=== PATIENT | male | born 1940 | race Caucasian/White ===

== ENCOUNTER 2017-05-08 09:51 | Day surgery (SDC) | payer MEDICARE, OTHER ==
[~2017-05-08] VITALS: Ht 193 cm; Wt 100.6 kg
[~2017-05-08 09:51] MED LIST: AFRIN NASAL SPR15 M1 NAS; AGGRENOX CAPSUL1 CAP PO; ALLOPURINOL300 MG PO; ATENOLOL50 MG PO; ATIVAN 0.50.5 MG/TAB PO; BENADRYL; BYSTOLIC PO; BYSTOLIC20 MG PO; COZAAR100 MG PO; DIOVAN/HCT 12.51 TA1 PO; DOXYCYCLINE 10100 MG PO; FISH OIL CONC1000 MG PO; GLUCOTROL XL10 MG PO; HCTZ12.5TAB PO; LEVAQUIN 5500 MG/TA1 PO; LIPITOR 10MG10 MG PO; LIPITOR20 MG PO; LISINOPRIL PO; LISINOPRIL10 MG PO; LISINOPRIL20 MG PO; NIASPAN 500MG500 MG PO; NORVASC 5MG5 MG/TAB PO; OCEAN NASAL SPR45 ML NS; PRAVACHOL10 MG PO; PRILOSEC 20MG20 MG PO; SLEEP AID OTC; STERILE WATER NAS; TYLENOL 325MG325 MG PO; VITAMIN B121000 MC2 SL; ZANTAC 150150 MG PO
[2017-05-08 10:23] VITALS: BP 138/73; PULSE 62; TEMP 98.3
[2017-05-08] MEDS ORDERED: AGGRENOX ER 251 CER PO (11:09)
[2017-05-08] MEDS ORDERED: NORVASC 5MG5 MG/TAB PO (11:09)
[2017-05-08] MEDS ORDERED: LIPITOR20 MG PO (11:10)
[2017-05-08] MEDS ORDERED: NITROSTAT0.4 MG/TAB SL (11:10)
[2017-05-08] MEDS ORDERED: DIOVAN320 MG PO (11:11)
[2017-05-08] MEDS ORDERED: BYSTOLIC10 MG PO (11:11)
[2017-05-08] MEDS ORDERED: GLUCOTROL XL2.5 MG PO (11:12)
[2017-05-08] MEDS ORDERED: B-121000 MCG PO (11:13)
[2017-05-08] MEDS ORDERED: CIALIS2.5 MG PO (11:14)
[2017-05-08] MEDS ORDERED: PRILOSEC 20MG20 MG PO (11:15)
[2017-05-08] MEDS ORDERED: ROZEREM 8MG TABL8 MG PO (11:15)
[2017-05-08] MEDS ORDERED: ZYLOPRIM 300MG300 MG PO (11:16)
[2017-05-08] MEDS ORDERED: TYLENOL 500MG500 MG PO (11:16)
[2017-05-08 11:45] VITALS: BP 136/78; PULSE 61; TEMP 97.6
[2017-05-08 12:00] VITALS: BP 123/94; PULSE 70
[2017-05-08 12:15] VITALS: BP 114/74; PULSE 55
== END 2017-05-08 12:46 | disposition home or self-care (01) ==
LOC: SDCO 09:51
DX: Z12.11 Encounter for screening for malignant neoplasm of colon (principal); K57.30 Diverticulosis of large intestine without perforation or abscess without bleeding; K21.9 Gastro-esophageal reflux disease without esophagitis; E11.9 Type 2 diabetes mellitus without complications; I10 Essential (primary) hypertension
CPT/HCPCS: J2250; J2405; J3010; J7030

== ENCOUNTER 2018-02-23 19:42 | Emergency (ER) | payer MEDICARE, OTHER ==
[~2018-02-23] VITALS: Ht 193 cm; Wt 81.8 kg
[~2018-02-23 19:42] MED LIST changes: +AGGRENOX ER 251 CER PO; +B-121000 MCG PO; +BYSTOLIC10 MG PO; +CIALIS2.5 MG PO; +DIOVAN320 MG PO; +GLUCOTROL XL2.5 MG PO; +NITROSTAT0.4 MG/TAB SL; +ROZEREM 8MG TABL8 MG PO; +TYLENOL 500MG500 MG PO; +ZYLOPRIM 300MG300 MG PO
[2018-02-23 19:48] VITALS: TEMP 98
[2018-02-23] MEDS ORDERED: NORCO 325 MG-51 TAB PO (21:40)
[2018-02-23] MEDS ORDERED: CRUTCHES MC (22:14)
[2018-02-23 22:27] VITALS: BP 136/81; PULSE 61
== END 2018-02-23 22:31 | disposition home or self-care (01) ==
LOC: COL.ER 19:42
DX: S82.851A Displaced trimalleolar fracture of right lower leg, initial encounter for closed fracture (principal); I10 Essential (primary) hypertension; E11.9 Type 2 diabetes mellitus without complications; E78.5 Hyperlipidemia, unspecified; Z79.82 Long term (current) use of aspirin; Z79.84 Long term (current) use of oral hypoglycemic drugs; W10.9XXA Fall (on) (from) unspecified stairs and steps, initial encounter
CPT/HCPCS: J2270; J2704; J7030; Q4045

== ENCOUNTER 2018-02-25 11:08 | Emergency (ER) | payer MEDICARE, OTHER ==
[~2018-02-25] VITALS: Ht 193 cm; Wt 81.8 kg
[~2018-02-25 11:08] MED LIST changes: +CRUTCHES MC; +NORCO 325 MG-51 TAB PO
[2018-02-25 11:09] VITALS: TEMP 97.9
[2018-02-25 11:53] LABS: BASO % 0.3 % (0.0-2.0); EOS # 0.1 (0.0-0.7); EOS % 0.6 % (0-4.0); GRAN # 10.3 (1.4-6.5); GRAN % 84.4 % (42.2-75.2); HEMOGLOBIN 12.7 g/dl (13.5-18.0); LYMPH # 0.8 (1.2-3.4); LYMPH % 6.8 % (20.0-51.0); MEAN CELL VOLUME 98 fl (80.0-100.0); MEAN CORPUSCULAR HEMOGLOBIN 34 pg (27.0-31.0); MEAN CORPUSCULAR HGB CONC 35 g/dl (33.0-37.0); MEAN PLATELET VOLUME 10.3 fl (7.4-10.4); MONO # 0.9 (0.1-0.6); MONO % 7.6 % (1.7-9.3); PLATELET COUNT 184 K/mm3 (130-400); RED BLOOD COUNT 3.71 M/mm3 (4.20-5.60); REDCELL DISTRIBUTION WIDTH-CV 13.6 % (11.5-14.5)
[2018-02-25 11:55] LABS: HEMATOCRIT 36.3 % (42.0-52.0)
[2018-02-25 12:34] LABS: ALBUMIN 3.8 gm/dL (3.5-5.0); BILIRUBIN,TOTAL 1.2 mg/dL (0.0-1.0); C-REACTIVE PROTEIN 3.8 mg/dL (0.0-0.9); CALCIUM 8.8 mg/dL (8.4-10.2); CREATININE, serum 1.23 mg/dL (0.66-1.25); TOTAL PROTEIN 7.5 gm/dL (6.4-8.2)
[2018-02-25 12:41] LABS: POTASSIUM 4.5 mmol/L (3.4-5.0)
[2018-02-25 18:55] VITALS: BP 144/83; PULSE 82
[2018-02-26] MEDS ORDERED: MELATONIN5 M1 SL (14:00)
== END 2018-02-25 18:57 | disposition home or self-care (01) ==
LOC: COL.ER 11:08
PROVIDERS: Family Medicine
DX: S82.851A Displaced trimalleolar fracture of right lower leg, initial encounter for closed fracture (principal); I10 Essential (primary) hypertension; E11.9 Type 2 diabetes mellitus without complications; E78.5 Hyperlipidemia, unspecified; Z79.82 Long term (current) use of aspirin; Z79.84 Long term (current) use of oral hypoglycemic drugs; W10.9XXA Fall (on) (from) unspecified stairs and steps, initial encounter
CPT/HCPCS: J1170; J2060; J2405; J2704; J7030

== ENCOUNTER 2018-02-26 11:05 | Observation (INO) | payer MEDICARE, OTHER ==
[~2018-02-26] VITALS: Ht 193 cm; Wt 93.9 kg
[2018-02-26] VITALS (8 sets, daily range): BP systolic 141–165; BP diastolic 67–101; PULSE 63–77; TEMP 98.5–98.8
[2018-02-26 12:10] LABS: BASO % 0.4 % (0.0-2.0); EOS % 0.4 % (0-4.0); GRAN % 83.1 % (42.2-75.2); HEMOGLOBIN 11.9 g/dl (13.5-18.0); LYMPH # 0.7 (1.2-3.4); LYMPH % 6.8 % (20.0-51.0); MEAN CELL VOLUME 98 fl (80.0-100.0); MEAN CORPUSCULAR HEMOGLOBIN 34 pg (27.0-31.0); MEAN CORPUSCULAR HGB CONC 35 g/dl (33.0-37.0); MEAN PLATELET VOLUME 9.7 fl (7.4-10.4); MONO % 8.8 % (1.7-9.3); PLATELET COUNT 146 K/mm3 (130-400); RED BLOOD COUNT 3.46 M/mm3 (4.20-5.60); REDCELL DISTRIBUTION WIDTH-CV 13.7 % (11.5-14.5)
[2018-02-26 12:19] LABS: ALBUMIN 3.8 gm/dL (3.5-5.0); BILIRUBIN,TOTAL 1.2 mg/dL (0.0-1.0); CALCIUM 9.1 mg/dL (8.4-10.2); CREATININE, serum 1.36 mg/dL (0.66-1.25); POTASSIUM 4.2 mmol/L (3.4-5.0); TOTAL PROTEIN 7.3 gm/dL (6.4-8.2)
[2018-02-26] MEDS ORDERED: MELATONIN5 M1 SL (14:00)
[2018-02-27] VITALS (8 sets, daily range): BP systolic 133–183; BP diastolic 63–86; PULSE 55–91; TEMP 97–99.2
[2018-02-27 06:14] LABS: BASO % 0.4 % (0.0-2.0); EOS # 0.3 (0.0-0.7); EOS % 2.5 % (0-4.0); GRAN # 7.6 (1.4-6.5); GRAN % 76.9 % (42.2-75.2); HEMOGLOBIN 12.3 g/dl (13.5-18.0); LYMPH # 1.1 (1.2-3.4); MEAN CELL VOLUME 97 fl (80.0-100.0); MEAN CORPUSCULAR HEMOGLOBIN 34 pg (27.0-31.0); MEAN CORPUSCULAR HGB CONC 35 g/dl (33.0-37.0); MEAN PLATELET VOLUME 9.8 fl (7.4-10.4); MONO # 0.9 (0.1-0.6); MONO % 8.8 % (1.7-9.3); PLATELET COUNT 171 K/mm3 (130-400); RED BLOOD COUNT 3.58 M/mm3 (4.20-5.60); REDCELL DISTRIBUTION WIDTH-CV 13.3 % (11.5-14.5)
[2018-02-27 06:23] LABS: HEMATOCRIT 34.8 % (42.0-52.0)
[2018-02-27 10:39] LABS: CREATININE, serum 1.21 mg/dL (0.66-1.25); POTASSIUM 3.6 mmol/L (3.4-5.0)
[2018-02-27 14:25] LABS: COLLECTION METHOD CLEAN CATCH
[2018-02-27 14:39] LABS: MUCOUS Present /lpf; PH 6 (5-8); SQUAMOUS EPITHELIAL None Seen /hpf; URINE APPEARANCE Clear; URINE BACTERIA Rare /hpf; URINE BILIRUBIN Negative (NEGATIVE); URINE BLOOD Negative (NEGATIVE); URINE COLOR Yellow; URINE GLUCOSE Negative (NEGATIVE); URINE KETONE Negative (NEGATIVE); URINE LEUKOCYTE ESTERASE Negative (NEGATIVE); URINE NITRATE Negative (NEGATIVE); URINE PROTEIN(semi-quant) Negative (NEGATIVE); URINE RBC 0-2 /hpf; URINE UROBILINOGEN Negative (NEGATIVE)
[2018-02-28 03:53] VITALS: BP 148/73; PULSE 56; TEMP 98.1
[2018-02-28 07:29] LABS: CALCIUM 8.6 mg/dL (8.4-10.2); CREATININE, serum 1.37 mg/dL (0.66-1.25); POTASSIUM 3.9 mmol/L (3.4-5.0)
[2018-02-28 08:22] VITALS: BP 138/67; PULSE 61; TEMP 98
[2018-02-28] MEDS ORDERED: ASPI325T6 PO (08:51)
[2018-02-28] MEDS ORDERED: NORCO 325 MG-51 TAB PO (09:40)
[2018-02-28] MEDS ORDERED: ULTRAM 50MG TAB50 MG PO (09:51)
[2018-02-28 11:48] VITALS: BP 138/67; PULSE 61; TEMP 98
[2018-02-28 12:13] VITALS: BP 148/81; PULSE 52; TEMP 97.7
== END 2018-02-28 13:41 ==
LOC: COL.ER 11:05 → MEDICAL 12:34 → SURG 16:00
PROVIDERS: Family Medicine
DX: S82.851A Displaced trimalleolar fracture of right lower leg, initial encounter for closed fracture (principal); I25.10 Atherosclerotic heart disease of native coronary artery without angina pectoris; I12.9 Hypertensive chronic kidney disease with stage 1 through stage 4 chronic kidney disease, or unspecified chronic kidney disease; E11.22 Type 2 diabetes mellitus with diabetic chronic kidney disease; N18.3 Chronic kidney disease, stage 3 (moderate); E78.5 Hyperlipidemia, unspecified; K21.9 Gastro-esophageal reflux disease without esophagitis; W10.9XXA Fall (on) (from) unspecified stairs and steps, initial encounter; M10.9 Gout, unspecified; D64.9 Anemia, unspecified; Z95.5 Presence of coronary angioplasty implant and graft; Z79.84 Long term (current) use of oral hypoglycemic drugs; Z79.82 Long term (current) use of aspirin; Z86.73 Personal history of transient ischemic attack (TIA), and cerebral infarction without residual deficits; Z88.8 Allergy status to other drugs, medicaments and biological substances; Z82.61 Family history of arthritis; Z83.3 Family history of diabetes mellitus
CPT/HCPCS: G8978-GP; G8979-GP; G8987-GO; G8988-GO; J1170; J2405; J2550; J2704; J7120

== ENCOUNTER → 2018-03-03 | Outpatient (CLI) | payer MEDICARE, OTHER ==
[~2018-03-03] MED LIST changes: +ASPI325T6 PO; +MELATONIN5 M1 SL; +ULTRAM 50MG TAB50 MG PO
[2018-03-03 16:41] LABS: COLLECTION METHOD CLEAN CATCH
[2018-03-03 16:47] LABS: MUCOUS Present /lpf; PH 5 (5-8); SQUAMOUS EPITHELIAL None Seen /hpf; URINE APPEARANCE Clear; URINE BACTERIA None Seen /hpf; URINE BILIRUBIN Negative (NEGATIVE); URINE BLOOD Negative (NEGATIVE); URINE COLOR Yellow; URINE GLUCOSE Negative (NEGATIVE); URINE KETONE Negative (NEGATIVE); URINE LEUKOCYTE ESTERASE Negative (NEGATIVE); URINE NITRATE Negative (NEGATIVE); URINE PROTEIN(semi-quant) Negative (NEGATIVE); URINE RBC None Seen /hpf; URINE WBC 0-2 /hpf
== END ==
LOC: ZLAB.STJ 16:40
PROVIDERS: Internal Medicine
DX: R82.90 Unspecified abnormal findings in urine (principal)

== ENCOUNTER 2018-03-05 14:39 | Inpatient (IN) | payer MEDICARE, OTHER ==
[~2018-03-05] VITALS: Ht 193 cm; Wt 89.9 kg
[~2018-03-05 14:39] MED LIST changes: -NORCO 325 MG-7.1 TAB PO; -ROXICODONE 55 MG/TAB PO
[2018-03-05 17:47] VITALS: BP 111/66; PULSE 86; TEMP 98
[2018-03-05] MEDS ORDERED: AGGRENOX ER 251 CER PO (18:09)
[2018-03-05] MEDS ORDERED: ROXICODONE 55 MG/TAB PO (19:22)
[2018-03-05 19:33] LABS: HEMOGLOBIN 11.2 g/dl (13.5-18.0); MEAN CELL VOLUME 98 fl (80.0-100.0); MEAN CORPUSCULAR HEMOGLOBIN 34 pg (27.0-31.0); MEAN CORPUSCULAR HGB CONC 35 g/dl (33.0-37.0); MEAN PLATELET VOLUME 9.3 fl (7.4-10.4); PLATELET COUNT 234 K/mm3 (130-400); RED BLOOD COUNT 3.29 M/mm3 (4.20-5.60); REDCELL DISTRIBUTION WIDTH-CV 13.3 % (11.5-14.5)
[2018-03-05 19:37] LABS: ALANINE AMINOTRANSFERASE 37 U/L (21-72); ALBUMIN 3.6 gm/dL (3.5-5.0); ALKALINE PHOSPHATASE 46 U/L (50-136); ANION GAP 10 mmol/L (7-16); AST,SGOT 36 U/L (15-37); BLOOD UREA NITROGEN 21 mg/dL (9-20); CALCIUM 8.7 mg/dL (8.4-10.2); CARBON DIOXIDE 25 mmol/L (22-30); CHLORIDE 98 mmol/L (98-107); CREATININE, serum 1.48 mg/dL (0.66-1.25); GLUCOSE 123 mg/dL (74-106); MAGNESIUM 2.2 mg/dL (1.6-2.3); SODIUM 133 mmol/L (137-145)
[2018-03-05 19:38] LABS: HEMATOCRIT 32.3 % (42.0-52.0)
[2018-03-05 19:48] LABS: AMMONIA < 9 umol/L (11-35)
[2018-03-05 19:52] LABS: BAND 1 % (0-10); LYMPHOCYTE 9 % (20.0-51.0); MICROCYTOSIS 1+; NEUTROPHILS 89 % (42.0-75.2)
[2018-03-05 19:53] LABS: ANISOCYTOSIS 2+; PLATELET ESTIMATE NORMAL (NORMAL)
[2018-03-05] MEDS ORDERED: NORCO 325 MG-7.1 TAB PO (20:07)
[2018-03-05 22:07] LABS: MUCOUS Present /lpf; PH 5 (5-8); SQUAMOUS EPITHELIAL 0-2 /hpf; URINE APPEARANCE Hazy; URINE BACTERIA None Seen /hpf; URINE BILIRUBIN Negative (NEGATIVE); URINE BLOOD Negative (NEGATIVE); URINE COLOR Yellow; URINE GLUCOSE Negative (NEGATIVE); URINE KETONE Negative (NEGATIVE); URINE LEUKOCYTE ESTERASE Negative (NEGATIVE); URINE NITRATE Negative (NEGATIVE); URINE PROTEIN(semi-quant) Negative (NEGATIVE); URINE RBC None Seen /hpf; URINE UROBILINOGEN Negative (NEGATIVE)
[2018-03-05 23:12] LABS: COLLECTION METHOD CLEAN CATCH
[2018-03-06 06:00] VITALS: BP 144/80; PULSE 72; TEMP 98.2
[2018-03-06 06:45] LABS: CALCIUM 8.7 mg/dL (8.4-10.2); CREATININE, serum 1.35 mg/dL (0.66-1.25); POTASSIUM 4.2 mmol/L (3.4-5.0)
[2018-03-06 17:41] VITALS: BP 150/80; PULSE 65; TEMP 97.8
[2018-03-07 06:00] VITALS: BP 163/79; PULSE 65; TEMP 97.4
[2018-03-07 17:21] VITALS: BP 136/76; PULSE 64; TEMP 98.3
[2018-03-08 05:00] VITALS: BP 158/72; PULSE 64; TEMP 98.3
[2018-03-08 09:23] LABS: HEMOGLOBIN 12.3 g/dl (13.5-18.0); MEAN CELL VOLUME 100 fl (80.0-100.0); MEAN CORPUSCULAR HEMOGLOBIN 34 pg (27.0-31.0); MEAN CORPUSCULAR HGB CONC 34 g/dl (33.0-37.0); MEAN PLATELET VOLUME 9.1 fl (7.4-10.4); PLATELET COUNT 329 K/mm3 (130-400); RED BLOOD COUNT 3.61 M/mm3 (4.20-5.60); REDCELL DISTRIBUTION WIDTH-CV 13.2 % (11.5-14.5)
[2018-03-08 09:24] LABS: HEMATOCRIT 36.2 % (42.0-52.0)
[2018-03-08 09:34] LABS: CALCIUM 9.4 mg/dL (8.4-10.2); CREATININE, serum 1.25 mg/dL (0.66-1.25); POTASSIUM 4.2 mmol/L (3.4-5.0)
[2018-03-08 09:47] LABS: BAND 3 % (0-10); EOSINOPHIL 1 % (0-4); LYMPHOCYTE 6 % (20.0-51.0); NEUTROPHILS 84 % (42.0-75.2); PLATELET ESTIMATE NORMAL (NORMAL)
[2018-03-08 16:26] VITALS: BP 155/65; PULSE 72; TEMP 97.2
[2018-03-09 06:30] VITALS: BP 157/72; PULSE 59; TEMP 97.6
[2018-03-09 12:40] VITALS: BP 73/47; PULSE 53
[2018-03-09] MEDS ORDERED: FLOMAX 0.40.4 MG/CAP PO (12:52)
[2018-03-09] MEDS ORDERED: SEROQUEL 2525 MG/TAB PO (12:53)
[2018-03-09] MEDS ORDERED: HALDOL 5MG/ML5 MG/ML IV (12:53)
[2018-03-09] MEDS ORDERED: NOVLOG SQ (12:53)
[2018-03-09] MEDS ORDERED: SEROQUEL50 MG PO (12:53)
[2018-03-09] MEDS ORDERED: GLUCOTROL XL2.5 MG PO (15:52)
[2018-03-09] MEDS ORDERED: DIOVAN320 MG PO (15:52)
[2018-03-09] MEDS ORDERED: BYSTOLIC20 MG PO (15:52)
[2018-03-09] MEDS ORDERED: NORVASC 5MG5 MG/TAB PO (15:52)
[2018-03-09] MEDS ORDERED: AGGRENOX ER 251 CER PO (15:53)
[2018-03-09] MEDS ORDERED: ROZEREM 8MG TABL8 MG PO (15:53)
[2018-03-09] MEDS ORDERED: CIALIS2.5 MG PO (15:53)
[2018-03-09] MEDS ORDERED: NORCO 325 MG-7.1 TAB PO (15:54)
[2018-03-11] MEDS ORDERED: TYLENOL 500MG500 MG PO (13:54)
[2018-03-11] MEDS ORDERED: SEROQUEL 1100 MG/TAB PO (13:55)
[2018-03-11] MEDS ORDERED: NAMENDA 10MG TA10 MG PO (14:01)
[2018-03-11 18:34] VITALS: BP 138/81; PULSE 74; TEMP 98.4
[2018-03-12] VITALS (7 sets, daily range): BP systolic 63–145; BP diastolic 40–86; PULSE 71–95; TEMP 97.5–98.6
[2018-03-13 03:53] VITALS: BP 129/73; PULSE 88; TEMP 98.4
[2018-03-13 07:59] VITALS: BP 127/76; PULSE 106; TEMP 98
[2018-03-13 11:50] VITALS: BP 133/65; PULSE 77; TEMP 97.9
[2018-03-13 16:56] VITALS: BP 122/66; PULSE 87; TEMP 98.2
[2018-03-13 21:47] VITALS: BP 138/74; PULSE 85; TEMP 98.5
[2018-03-14 03:01] VITALS: BP 141/72; PULSE 85; TEMP 97.8
[2018-03-14 08:31] VITALS: BP 151/92; PULSE 89
[2018-03-14 12:00] VITALS: BP 131/71; PULSE 84; TEMP 97.6
[2018-03-14 16:46] VITALS: BP 131/71; PULSE 84; TEMP 97.6
[2018-03-14 18:31] VITALS: BP 134/72; PULSE 85; TEMP 97.8
[2018-03-14 20:30] VITALS: BP 136/66; PULSE 84; TEMP 98.2
[2018-03-15 00:19] VITALS: BP 135/75; PULSE 88; TEMP 97.6
[2018-03-15 04:21] VITALS: BP 156/81; PULSE 76; TEMP 97.9
[2018-03-15 08:00] VITALS: BP 133/88; PULSE 122
[2018-03-15 12:21] VITALS: BP 106/70; PULSE 115; TEMP 97.7
[2018-03-15 18:04] VITALS: BP 133/77; PULSE 87; TEMP 98.1
[2018-03-16 06:45] VITALS: BP 134/67; PULSE 90; TEMP 98
[2018-03-16 16:27] VITALS: BP 135/76; PULSE 84; TEMP 98.4
[2018-03-17 06:40] VITALS: BP 115/49; PULSE 67; TEMP 98.7
[2018-03-17 07:37] LABS: BASO % 0.6 % (0.0-2.0); EOS # 0.5 (0.0-0.7); GRAN # 4.2 (1.4-6.5); GRAN % 60.2 % (42.2-75.2); HEMOGLOBIN 11.6 g/dl (13.5-18.0); LYMPH # 1.6 (1.2-3.4); LYMPH % 22.9 % (20.0-51.0); MEAN CELL VOLUME 103 fl (80.0-100.0); MEAN CORPUSCULAR HEMOGLOBIN 34 pg (27.0-31.0); MEAN CORPUSCULAR HGB CONC 33 g/dl (33.0-37.0); MEAN PLATELET VOLUME 9.1 fl (7.4-10.4); MONO # 0.6 (0.1-0.6); PLATELET COUNT 309 K/mm3 (130-400); RED BLOOD COUNT 3.39 M/mm3 (4.20-5.60); REDCELL DISTRIBUTION WIDTH-CV 13.5 % (11.5-14.5)
[2018-03-17 07:40] LABS: HEMATOCRIT 34.8 % (42.0-52.0)
[2018-03-17 07:55] LABS: CALCIUM 9.1 mg/dL (8.4-10.2); CREATININE, serum 1.22 mg/dL (0.66-1.25); MAGNESIUM 1.9 mg/dL (1.6-2.3); POTASSIUM 4.3 mmol/L (3.4-5.0)
[2018-03-17 18:04] VITALS: BP 140/79; PULSE 82; TEMP 97.3
[2018-03-18 05:56] VITALS: BP 141/89; PULSE 86; TEMP 97.9
[2018-03-18 15:46] VITALS: BP 136/77; PULSE 80; TEMP 98.2
[2018-03-19 06:00] VITALS: BP 178/88; PULSE 78; TEMP 97.6
[2018-03-19 16:21] VITALS: BP 131/79; PULSE 96; TEMP 97.8
[2018-03-20 03:43] VITALS: BP 137/80; PULSE 73; TEMP 98.3
[2018-03-20 18:33] VITALS: BP 138/82; PULSE 92; TEMP 97.5
[2018-03-21 04:41] VITALS: BP 145/84; PULSE 83; TEMP 97.3
[2018-03-21 18:30] VITALS: BP 122/85; PULSE 95; TEMP 97.7
[2018-03-22 05:22] VITALS: BP 130/68; PULSE 105; TEMP 98
[2018-03-22 17:30] VITALS: BP 133/79; PULSE 94; TEMP 97.7
[2018-03-23 06:25] VITALS: BP 137/83; PULSE 95; TEMP 97.5
[2018-03-23 18:00] VITALS: BP 120/70; PULSE 101; TEMP 98
[2018-03-24 03:56] VITALS: BP 142/84; PULSE 85; TEMP 98
[2018-03-24 18:36] VITALS: BP 11/73; PULSE 99; TEMP 98.1
[2018-03-25 04:01] VITALS: BP 153/88; PULSE 90; TEMP 97.8
[2018-03-25 18:24] VITALS: BP 143/83; PULSE 92; TEMP 97.6
[2018-03-26 04:32] VITALS: BP 141/85; PULSE 79; TEMP 97.6
[2018-03-26] MEDS ORDERED: NAMENDA5 MG PO (10:33)
[2018-03-26] MEDS ORDERED: LIPITOR20 MG PO (10:33)
[2018-03-26] MEDS ORDERED: ASPI325T6 PO (10:33)
[2018-03-26] MEDS ORDERED: NAMENDA 10MG TA10 MG PO ×2 (10:33)
[2018-03-26] MEDS ORDERED: PRILOSEC 20MG20 MG PO (10:33)
[2018-03-26] MEDS ORDERED: FLOMAX 0.40.4 MG/CAP PO (10:33)
[2018-03-26] MEDS ORDERED: NITROSTAT0.4 MG/TAB SL (10:33)
[2018-03-26] MEDS ORDERED: TYLENOL 325MG325 MG PO (10:33)
[2018-03-26] MEDS ORDERED: ZYLOPRIM 300MG300 MG PO (10:33)
[2018-03-26] MEDS ORDERED: NORVASC2.5 MG PO (10:33)
[2018-03-26] MEDS ORDERED: B-121000 MCG PO (10:33)
== END 2018-03-26 14:00 | disposition home health service (06) | DRG 559 ==
PROVIDERS: Internal Medicine
DX: S82.841D Displaced bimalleolar fracture of right lower leg, subsequent encounter for closed fracture with routine healing (principal); G93.40 Encephalopathy, unspecified; N17.9 Acute kidney failure, unspecified; S92.141D Displaced dome fracture of right talus, subsequent encounter for fracture with routine healing; I25.10 Atherosclerotic heart disease of native coronary artery without angina pectoris; E11.9 Type 2 diabetes mellitus without complications; I10 Essential (primary) hypertension; W10.8XXD Fall (on) (from) other stairs and steps, subsequent encounter; K40.20 Bilateral inguinal hernia, without obstruction or gangrene, not specified as recurrent
CPT/HCPCS: 99223-AI; 99232-AI; 99233-AI; 99239; A9585; J1815; J7030

== ENCOUNTER → 2018-03-05 | Outpatient (REF) ==
[~2018-03-05] MED LIST changes: +NORCO 325 MG-7.1 TAB PO; +ROXICODONE 55 MG/TAB PO
[2018-03-05 06:47] LABS: ALBUMIN 3.7 gm/dL (3.5-5.0); BILIRUBIN,TOTAL 1.3 mg/dL (0.0-1.0); CALCIUM 8.7 mg/dL (8.4-10.2); CREATININE, serum 1.28 mg/dL (0.66-1.25); POTASSIUM 4.2 mmol/L (3.4-5.0); TOTAL PROTEIN 7.2 gm/dL (6.4-8.2)
== END ==
LOC: ZMSC 06:29
PROVIDERS: Orthopaedic Surgery
DX: Z01.89 Encounter for other specified special examinations (principal)

== ENCOUNTER 2018-03-09 13:32 | Inpatient (IN) | payer MEDICARE, OTHER ==
[2018-03-09] VITALS (57 sets, daily range): BP systolic 140–157; BP diastolic 84–93; PULSE 69–74; TEMP 97.8–98.1; O2SAT 71–100
[~2018-03-09] VITALS: Ht 193 cm; Wt 91.4 kg
[~2018-03-09 13:32] MED LIST changes: +FLOMAX 0.40.4 MG/CAP PO; +HALDOL 5MG/ML5 MG/ML IV; +NORCO 325 MG-7.1 TAB PO; +NOVLOG SQ; +ROXICODONE 55 MG/TAB PO; +SEROQUEL 2525 MG/TAB PO; +SEROQUEL50 MG PO
[2018-03-09 14:53] LABS: BASO # 0.1 (0.0-0.2); BASO % 0.6 % (0.0-2.0); EOS # 0.2 (0.0-0.7); EOS % 2.5 % (0-4.0); GRAN # 6.2 (1.4-6.5); GRAN % 74.2 % (42.2-75.2); HEMOGLOBIN 11.2 g/dl (13.5-18.0); LYMPH # 1.2 (1.2-3.4); LYMPH % 13.8 % (20.0-51.0); MEAN CELL VOLUME 100 fl (80.0-100.0); MEAN CORPUSCULAR HEMOGLOBIN 34 pg (27.0-31.0); MEAN CORPUSCULAR HGB CONC 34 g/dl (33.0-37.0); MEAN PLATELET VOLUME 9.3 fl (7.4-10.4); MONO # 0.7 (0.1-0.6); MONO % 8.4 % (1.7-9.3); PLATELET COUNT 274 K/mm3 (130-400); RED BLOOD COUNT 3.26 M/mm3 (4.20-5.60); REDCELL DISTRIBUTION WIDTH-CV 13.3 % (11.5-14.5)
[2018-03-09 14:54] LABS: HEMATOCRIT 32.7 % (42.0-52.0)
[2018-03-09 15:05] LABS: AMMONIA < 9 umol/L (11-35)
[2018-03-09 15:06] LABS: ALBUMIN 3.5 gm/dL (3.5-5.0); BILIRUBIN,TOTAL 0.8 mg/dL (0.0-1.0); CALCIUM 8.7 mg/dL (8.4-10.2); CREATININE, serum 1.33 mg/dL (0.66-1.25); POTASSIUM 4.2 mmol/L (3.4-5.0)
[2018-03-09 15:13] LABS: MAGNESIUM 1.8 mg/dL (1.6-2.3)
[2018-03-09 15:36] LABS: TSH w REFLEX 0.193 uIU/mL (0.465-4.680)
[2018-03-09] MEDS ORDERED: GLUCOTROL XL2.5 MG PO (15:52)
[2018-03-09] MEDS ORDERED: DIOVAN320 MG PO (15:52)
[2018-03-09] MEDS ORDERED: NORVASC 5MG5 MG/TAB PO (15:52)
[2018-03-09] MEDS ORDERED: BYSTOLIC20 MG PO (15:52)
[2018-03-09] MEDS ORDERED: CIALIS2.5 MG PO (15:53)
[2018-03-09] MEDS ORDERED: ROZEREM 8MG TABL8 MG PO (15:53)
[2018-03-09] MEDS ORDERED: AGGRENOX ER 251 CER PO (15:53)
[2018-03-09] MEDS ORDERED: NORCO 325 MG-7.1 TAB PO (15:54)
[2018-03-09 17:05] LABS: COLLECTION METHOD CLEAN CATCH
[2018-03-09 17:10] LABS: MUCOUS Present /lpf; PH 5 (5-8); SQUAMOUS EPITHELIAL 0-2 /hpf; URINE APPEARANCE Clear; URINE BACTERIA None Seen /hpf; URINE BILIRUBIN Negative (NEGATIVE); URINE BLOOD Negative (NEGATIVE); URINE COLOR Yellow; URINE GLUCOSE Negative (NEGATIVE); URINE KETONE Negative (NEGATIVE); URINE LEUKOCYTE ESTERASE Negative (NEGATIVE); URINE NITRATE Negative (NEGATIVE); URINE PROTEIN(semi-quant) Negative (NEGATIVE); URINE RBC 0-2 /hpf; URINE UROBILINOGEN Negative (NEGATIVE)
[2018-03-10] VITALS (15 sets, daily range): BP systolic 129–162; BP diastolic 66–92; PULSE 56–71; TEMP 97.4–98.8; O2SAT 84–100
[2018-03-11] VITALS: BP 142/77; PULSE 55; TEMP 97.5
[2018-03-11 04:00] VITALS: BP 141/94; PULSE 70; TEMP 99.2
[2018-03-11 08:49] VITALS: BP 151/81; PULSE 62; TEMP 97.2
[2018-03-11 11:18] LABS: CALCIUM 9.2 mg/dL (8.4-10.2); CREATININE, serum 1.2 mg/dL (0.66-1.25); POTASSIUM 4.2 mmol/L (3.4-5.0)
[2018-03-11 11:31] LABS: BASO % 0.4 % (0.0-2.0); EOS # 0.3 (0.0-0.7); EOS % 3.3 % (0-4.0); GRAN % 75.7 % (42.2-75.2); HEMOGLOBIN 12.1 g/dl (13.5-18.0); LYMPH # 1.2 (1.2-3.4); LYMPH % 13.4 % (20.0-51.0); MEAN CELL VOLUME 99 fl (80.0-100.0); MEAN CORPUSCULAR HEMOGLOBIN 34 pg (27.0-31.0); MEAN CORPUSCULAR HGB CONC 35 g/dl (33.0-37.0); MEAN PLATELET VOLUME 9.1 fl (7.4-10.4); MONO # 0.6 (0.1-0.6); MONO % 6.8 % (1.7-9.3); PLATELET COUNT 270 K/mm3 (130-400); RED BLOOD COUNT 3.52 M/mm3 (4.20-5.60); REDCELL DISTRIBUTION WIDTH-CV 13.2 % (11.5-14.5)
[2018-03-11 12:27] VITALS: BP 144/84; PULSE 69; TEMP 96
[2018-03-11] MEDS ORDERED: TYLENOL 500MG500 MG PO (13:54)
[2018-03-11] MEDS ORDERED: SEROQUEL 1100 MG/TAB PO (13:55)
[2018-03-11] MEDS ORDERED: NAMENDA 10MG TA10 MG PO (14:01)
[2018-03-11 14:12] VITALS: BP 138/84
[2018-03-11 14:23] VITALS: BP 126/82; PULSE 95; TEMP 97.4
== END 2018-03-11 18:22 | DRG 312 ==
LOC: IMCU 13:32 → ICU 14:30 → SURG 03-11 08:36
PROVIDERS: Internal Medicine; Nurse Practitioner Family; Physician Assistant
DX: I95.2 Hypotension due to drugs (principal); F05 Delirium due to known physiological condition; R55 Syncope and collapse; T40.2X5A Adverse effect of other opioids, initial encounter; F03.90 Unspecified dementia, unspecified severity, without behavioral disturbance, psychotic disturbance, mood disturbance, and anxiety; E11.9 Type 2 diabetes mellitus without complications; I25.10 Atherosclerotic heart disease of native coronary artery without angina pectoris; I12.9 Hypertensive chronic kidney disease with stage 1 through stage 4 chronic kidney disease, or unspecified chronic kidney disease; N18.3 Chronic kidney disease, stage 3 (moderate); S82.891D Other fracture of right lower leg, subsequent encounter for closed fracture with routine healing; E11.22 Type 2 diabetes mellitus with diabetic chronic kidney disease
CPT/HCPCS: 99233-AI; 99239; J1630; J1815; J7030

== ENCOUNTER 2018-04-16 05:43 | Day surgery (SDC) | payer MEDICARE, OTHER ==
[~2018-04-16] VITALS: Ht 193 cm; Wt 88.2 kg
[~2018-04-16 05:43] MED LIST changes: +NAMENDA 10MG TA10 MG PO; +NAMENDA5 MG PO; +NORVASC2.5 MG PO; +SEROQUEL 1100 MG/TAB PO
[2018-04-16 06:51] VITALS: BP 160/89; PULSE 77; TEMP 97.5
[2018-04-16 09:40] VITALS: BP 128/78; PULSE 98; TEMP 97.7
[2018-04-16 09:55] VITALS: BP 112/88; PULSE 98
[2018-04-16 10:10] VITALS: BP 119/73; PULSE 97
[2018-04-16 10:25] VITALS: BP 122/74; PULSE 99
[2018-04-16 10:40] VITALS: BP 128/78; PULSE 101
[2018-04-23] MEDS ORDERED: MIRALAX PA17 GM/Dose PO (11:32)
[2018-04-23] MEDS ORDERED: AGGRENOX ER 251 CER PO (11:32)
[2018-04-23] MEDS ORDERED: TOPROL XL 50MG50 MG PO (15:25)
[2018-04-23] MEDS ORDERED: MIRTAZAPINE7.5 MG PO (15:27)
== END 2018-04-16 12:39 | disposition home or self-care (01) ==
LOC: SDCO 05:43
DX: K40.20 Bilateral inguinal hernia, without obstruction or gangrene, not specified as recurrent (principal); E11.9 Type 2 diabetes mellitus without complications; Z79.84 Long term (current) use of oral hypoglycemic drugs; G47.30 Sleep apnea, unspecified; I10 Essential (primary) hypertension; Z79.899 Other long term (current) drug therapy; D64.9 Anemia, unspecified
CPT/HCPCS: A4314; C1781; J0690; J1100; J1885; J2405; J2704; J2765; J3010; J7030

== ENCOUNTER 2018-04-16 15:42 | Observation (INO) | payer MEDICARE, OTHER ==
[~2018-04-16] VITALS: Ht 193 cm; Wt 92.2 kg
[2018-04-16 16:19] LABS: BASO % 0.1 % (0.0-2.0); GRAN # 12.3 (1.4-6.5); GRAN % 94.6 % (42.2-75.2); HEMATOCRIT 32.9 % (42.0-52.0); HEMOGLOBIN 10.9 g/dl (13.5-18.0); LYMPH # 0.3 (1.2-3.4); LYMPH % 2.3 % (20.0-51.0); MEAN CELL VOLUME 102 fl (80.0-100.0); MEAN CORPUSCULAR HEMOGLOBIN 34 pg (27.0-31.0); MEAN CORPUSCULAR HGB CONC 33 g/dl (33.0-37.0); MONO # 0.4 (0.1-0.6); MONO % 2.7 % (1.7-9.3); PLATELET COUNT 186 K/mm3 (130-400); RED BLOOD COUNT 3.22 M/mm3 (4.20-5.60); REDCELL DISTRIBUTION WIDTH-CV 13.3 % (11.5-14.5)
[2018-04-16 16:31] LABS: ALANINE AMINOTRANSFERASE 21 U/L (21-72); ALBUMIN 3.6 gm/dL (3.5-5.0); ALKALINE PHOSPHATASE 54 U/L (50-136); ANION GAP 10 mmol/L (7-16); AST,SGOT 22 U/L (15-37); BILIRUBIN,TOTAL 0.6 mg/dL (0.0-1.0); BLOOD UREA NITROGEN 19 mg/dL (9-20); CALCIUM 8.6 mg/dL (8.4-10.2); CARBON DIOXIDE 22 mmol/L (22-30); CHLORIDE 107 mmol/L (98-107); CREATININE, serum 1.49 mg/dL (0.66-1.25); GLUCOSE 223 mg/dL (74-106); POTASSIUM 4.7 mmol/L (3.4-5.0); SODIUM 139 mmol/L (137-145); TOTAL PROTEIN 6.9 gm/dL (6.4-8.2)
[2018-04-16 16:32] LABS: C-REACTIVE PROTEIN < 0.5 mg/dL (0.0-0.9)
[2018-04-16 16:47] LABS: TROPONIN-I < 0.012 ng/mL (0.000-0.034)
[2018-04-16 16:50] VITALS: BP 122/69; PULSE 89
[2018-04-16 19:55] VITALS: BP 142/66; PULSE 95; TEMP 97.5
[2018-04-16 20:43] LABS: COLLECTION METHOD CLEAN CATCH
[2018-04-16 21:01] LABS: MUCOUS Present /lpf; PH 5 (5-8); SQUAMOUS EPITHELIAL 0-2 /hpf; URINE APPEARANCE Cloudy; URINE BACTERIA None Seen /hpf; URINE BILIRUBIN Negative (NEGATIVE); URINE BLOOD 1+ (NEGATIVE); URINE COLOR Amber; URINE GLUCOSE Negative (NEGATIVE); URINE KETONE Trace (NEGATIVE); URINE LEUKOCYTE ESTERASE Negative (NEGATIVE); URINE NITRATE Negative (NEGATIVE); URINE PROTEIN(semi-quant) 2+ (NEGATIVE); URINE UROBILINOGEN Negative (NEGATIVE)
[2018-04-17 04:00] VITALS: BP 143/77; PULSE 93; TEMP 97.2
[2018-04-17 05:54] LABS: BASO % 0.2 % (0.0-2.0); EOS # 0.1 (0.0-0.7); EOS % 0.4 % (0-4.0); GRAN % 78.8 % (42.2-75.2); LYMPH # 1.3 (1.2-3.4); MEAN CELL VOLUME 102 fl (80.0-100.0); MEAN CORPUSCULAR HGB CONC 34 g/dl (33.0-37.0); MEAN PLATELET VOLUME 9.4 fl (7.4-10.4); MONO # 1.1 (0.1-0.6); MONO % 9.2 % (1.7-9.3); PLATELET COUNT 175 K/mm3 (130-400); RED BLOOD COUNT 2.64 M/mm3 (4.20-5.60); REDCELL DISTRIBUTION WIDTH-CV 13.5 % (11.5-14.5)
[2018-04-17 06:06] LABS: MEAN CORPUSCULAR HEMOGLOBIN 34 pg (27.0-31.0)
[2018-04-17 06:07] LABS: HEMATOCRIT 26.8 % (42.0-52.0)
[2018-04-17 06:12] LABS: CALCIUM 8.5 mg/dL (8.4-10.2); CREATININE, serum 1.21 mg/dL (0.66-1.25); POTASSIUM 4.8 mmol/L (3.4-5.0)
[2018-04-17 08:05] VITALS: BP 142/81; PULSE 106; TEMP 98.7
[2018-04-23] MEDS ORDERED: AGGRENOX ER 251 CER PO (11:32)
[2018-04-23] MEDS ORDERED: MIRALAX PA17 GM/Dose PO (11:32)
[2018-04-23] MEDS ORDERED: TOPROL XL 50MG50 MG PO (15:25)
[2018-04-23] MEDS ORDERED: MIRTAZAPINE7.5 MG PO (15:27)
== END 2018-04-17 12:30 | disposition home or self-care (01) ==
LOC: COL.ER 15:42 → SURG 17:36
PROVIDERS: Emergency Medicine; Surgery
DX: R55 Syncope and collapse (principal); N99.89 Other postprocedural complications and disorders of genitourinary system; R30.0 Dysuria; Z79.899 Other long term (current) drug therapy; Z79.82 Long term (current) use of aspirin; E11.9 Type 2 diabetes mellitus without complications; Z79.84 Long term (current) use of oral hypoglycemic drugs; G47.30 Sleep apnea, unspecified
CPT/HCPCS: G0378; J7030

== ENCOUNTER → 2018-09-17 | Outpatient (CLI) | payer MEDICARE, OTHER ==
[~2018-09-17] MED LIST changes: +MIRALAX PA17 GM/Dose PO; +MIRTAZAPINE7.5 MG PO; +TOPROL XL 50MG50 MG PO
== END ==
LOC: COL.RAD 07:44
DX: F03.90 Unspecified dementia, unspecified severity, without behavioral disturbance, psychotic disturbance, mood disturbance, and anxiety (principal)
CPT/HCPCS: Q9967

== ENCOUNTER 2018-10-25 10:02 | Outpatient (RCR) | payer MEDICARE, OTHER | END 2019-01-23 | LOC: WSC → WSPT 10:15 | DX: M25.512 Pain in left shoulder (principal); R26.89 Other abnormalities of gait and mobility ==

== ENCOUNTER 2019-07-05 15:36 | Inpatient (IN) | payer MEDICARE, OTHER ==
[~2019-07-05] VITALS: Ht 193 cm; Wt 87.0 kg
[2019-07-05 17:44] VITALS: BP 119/40; PULSE 79; TEMP 98.3
[2019-07-05 17:46] VITALS: BP 119/40; PULSE 79; TEMP 98.3
[2019-07-05] MEDS ORDERED: PRILOSEC 20MG20 MG PO (18:22)
[2019-07-05] MEDS ORDERED: SINEMET 25/101 UDTAB PO (18:24)
[2019-07-05] MEDS ORDERED: AMBIEN 5MG TABLE5 MG PO (18:27)
--- NOTE | 2019-07-05 18:31 | NUR ---
Patient up to room 339 by samantha. Alert and oriented to self. Assessment complete. Patient and spouse oriented to room. Bed alarm on. Denies pain or further needs at this time. Will report off to rn night.
--- NOTE | 2019-07-05 19:40 | NUR ---
answers questions and admission assessment completed. Visitors left for the night. remains and given blankets and pillow.
--- NOTE | 2019-07-05 20:15 | NUR ---
Patient reports needing to go to the bathroom. Nurse called for assist, however patient already incontinent through attends onto pad and clothing. Max assist to remove shirt and change. Good lee-care done and no skin breakdown noted.
[2019-07-05] MEDS ORDERED: NORVASC2.5 MG PO (23:08)
[2019-07-05] MEDS ORDERED: TYLENOL 500MG500 MG PO (23:13)
--- NOTE | 2019-07-06 00:37 | NUR ---
Patient restless and tylenol given/SCD's removed due to discomfort. Patient repositioned up in bed. remains and attentive. Patient frequently pulls blankets off and puts legs over side of bed. Much reassurance given. Patient alert to self and only/states he's in the garage.
--- NOTE | 2019-07-06 01:24 | NUR ---
PATIENT NOW RESTING WITH EYES CLOSED. RESPIRATIONS WITH EASE.
--- NOTE | 2019-07-06 05:36 | NUR ---
Patient has been resting with eyes closed. Respirations with ease.
--- NOTE | 2019-07-06 06:01 | NUR ---
Patient has significant tremors this am and unable to get bp manually. Incontinent of urine and total assist of 2 to change. Returns to resting with eyes closed.
[2019-07-06 06:02] VITALS: PULSE 84
--- NOTE | 2019-07-06 08:17 | NUR ---
Bedside report from BAILEY Little. Pt set up for breakfast, cont to have moderate twitches, bed alarm on, call lt in reach, left arm weakness, yellow gown/grippers/wrist band on. Pt states he wears glasses but cannot find them. Pt was tearful x2 this morning, pleasantly confused.
--- NOTE | 2019-07-06 11:53 | NUR ---
Pt's Daria visiting, pt to chair for lunch, call lt in reach, needs cued to take pill, chases it with a grape.
[2019-07-06 16:00] VITALS: BP 119/40
[2019-07-06 18:10] VITALS: BP 119/40
[2019-07-06 18:36] VITALS: BP 126/91; PULSE 80; TEMP 97.3
--- NOTE | 2019-07-06 18:51 | NUR ---
Notified Beth, IPR director that pt has suspect pink area to left lower buttock, she will communicate with therapists. Dr. Rodarte notified and states he will look at pt tomorrow.
--- NOTE | 2019-07-06 20:00 | NUR ---
PATIENT RESTING IN BED DURING SHIFT CHANGE SHIFT CHANGE REPORT FROM DAY SHIFT NURSE, NOT ORIENTED TO PLACE/TIME/EVENT. BED ALARM ENGAGED.
--- NOTE | 2019-07-07 02:58 | NUR ---
PATIENT RESTING IN BED WITH EYES CLOSED, DOES NOT AWAKEN WHEN ROOM ENTERED. BREATHING LOUD, WITH MOUTH OPEN, NONLABORED AND EVEN. BED ALARM ENGAGED.
[2019-07-07 05:59] VITALS: BP 142/90; PULSE 79; TEMP 97.6
--- NOTE | 2019-07-07 06:34 | NUR ---
COOPERATIVE, RESPONDS WITH "I DON'T KNOW" WHEN ASKED ORIENTATION QUESTIONS. BED ALARM ENGAGED.
--- NOTE | 2019-07-07 07:41 | NUR ---
Patient resting in bed with eyes closed, does not awaken during shift change report given to day shift nurse. Bed alarm engaged.
--- NOTE | 2019-07-07 09:17 | NUR ---
Patient resting in bed working with ST at this time. Patient very tearful this AM. He reported being in pain when working with therapy yesterday. Given PRN Tylenol this morning to help him prepare for therapy today. Patient did eat some breakfast, but required staff assistance with feeding him at times. Takes pills whole with applesauce and requires queing to swallow. Will continue to monitor.
--- NOTE | 2019-07-07 10:55 | NUR ---
Patient was a two assist with the sit to stand to use the BSC. Patient had a Medium Soft Formed BM that was continent, but was incontinent of urine. Will continue to monitor.
--- NOTE | 2019-07-07 15:48 | NUR ---
SHANON met with the patient and his , Daria (ph#[phone]), to complete initial intake, as the patient is new to [facility]. The patient lives in [place] with his . Daria reports that the patient needed assistance with bathing and dressing before [facility]. She states that he has a cane, walker, wheelchair, and that they have a wheelchair ramp. The patient's PCP is Dr. Faahd Carmona and he receives his medications at [facility]. She reports no difficulties obtaining his meds. The patient's advanced directives are in EMR. His DPOA-HC is his and the alternate is his son, Prashant. Daria reports that Prashant travels for his job and goes all over the [place]. A family meeting was scheduled for tomorrow, 07/08, at 1300. SHANON informed [facility] Director and will continue to follow.
[2019-07-07 18:00] VITALS: BP 112/74; PULSE 76; TEMP 97.6
--- NOTE | 2019-07-07 18:46 | NUR ---
Patient was a full body lift from [facility] to bed this evening. Patient was unable to use the sit to stand. He would put his hands on the hand hop farmer and when staff lifted it up he would bend his legs and just hang from the hand hop farmer instead of putting feet on the sit to stand foot board. Patient very anxious this evening. He did ask to use the bathroom, but was unable to use the urinal since he was to confused to understand how to use it. Patient resting in bed with call light in reach, bed alarm is on and slip proof socks on. Reported off to night nurse.
--- NOTE | 2019-07-07 20:00 | NUR ---
PUT TO BED X3 STAFF FOR TOTAL TRANSFER, PATIENT UNABLE TO ASSIST OR FOLLOW COMMANDS DURING PIVOT TRANSFER FROM BSC BACK TO BED, TRANSFER DIFFICULT TO EXECUTE DUE TO PATIENT UNABLE TO ASSIST. BED ALARM ENGAGED. PATIENT RESTING IN BED AFTER TRANSFER DURING SHIFT CHANGE REPORT FROM DAY SHIFT NURSE.
--- NOTE | 2019-07-08 02:53 | NUR ---
Patient resting with eyes closed, does not awaken when room entered. Breathing nonlabored and even. Bed alarm engaged.
--- NOTE | 2019-07-08 04:40 | NUR ---
RESTING WITH EYES CLOSED, DOES NOT AWAKEN WHEN ROOM ENTERED. BREATHING NONLABORED AND EVEN. BED ALARM ENGAGED
[2019-07-08 05:51] VITALS: BP 134/89; PULSE 67; TEMP 97.8
[2019-07-08 07:04] LABS: BASO # 0.1 (0.0-0.2); BASO % 1.3 % (0.0-2.0); EOS # 0.3 (0.0-0.7); EOS % 4.6 % (0-4.0); GRAN # 4.1 (1.4-6.5); GRAN % 59.5 % (42.2-75.2); HEMATOCRIT 37.5 % (42.0-52.0); HEMOGLOBIN 12.6 g/dl (13.5-18.0); LYMPH # 1.7 (1.2-3.4); LYMPH % 23.7 % (20.0-51.0); MEAN CELL VOLUME 101 fl (80.0-100.0); MEAN CORPUSCULAR HEMOGLOBIN 34 pg (27.0-31.0); MEAN CORPUSCULAR HGB CONC 34 g/dl (33.0-37.0); MONO # 0.7 (0.1-0.6); MONO % 10.3 % (1.7-9.3); PLATELET COUNT 292 K/mm3 (130-400); RED BLOOD COUNT 3.71 M/mm3 (4.20-5.60); REDCELL DISTRIBUTION WIDTH-CV 13.2 % (11.5-14.5)
--- NOTE | 2019-07-08 07:09 | NUR ---
PATIENT RESTING IN BED DURING SHIFT CHANGE REPORT GIVEN TO DAY SHIFT NURSE. BED ALARM ENGAGED.
[2019-07-08 07:13] LABS: CALCIUM 9.2 mg/dL (8.4-10.2); CREATININE, serum 1.47 (0.66-1.25); MAGNESIUM 2.1 mg/dL (1.6-2.3); POTASSIUM 3.7 mmol/L (3.4-5.0)
--- NOTE | 2019-07-08 10:44 | NUR ---
Patient resting in recliner at this time, call light in reach and alarm is set. Patient alert to Name, but not birthday or year. Patient denies pain at this time. Will continue to monitor.
--- NOTE | 2019-07-08 12:43 | NUR ---
Patient's stopped by this afternoon and helped patient with cutting up his meat and just visiting with him. Patient had a shower today and had a small BM when in the shower. Patient was a two person assist with [id number] this morning. Patient currently resting in recliner, call light in reach, by his side and alarm is on. Will continue to monitor.
--- NOTE | 2019-07-08 13:22 | NUR ---
SW attended a family meeting with patient and his , Daria. Also present was PT, OT, and ST. OT, Joslyn, began by explaining the purpose of the meeting. PT/OT/ST then discussed the patient's progress so far. The patient is requiring min-max assist. The patient's reports that their goal is for the patient to return home, but understands that it may not be feasible if the patient does not make anymore progress. The patient's reports that they will just take it day by day. The teams answered all questions. SW to continue to follow.
[2019-07-08 15:54] VITALS: BP 120/75; PULSE 71; TEMP 97.3
[2019-07-08 15:55] VITALS: BP 122/75; PULSE 66
[2019-07-08 16:00] VITALS: BP 119/40
--- NOTE | 2019-07-08 19:48 | NUR ---
Patient has been in a pleasent mood this evening. Staff placed him in his bed by 3 PM so that following supper he did not have to be moved with the sit to stand lift or with using the walker. This really prevented him from anxiety issues with transferring. Patient tolerated diet well this shift. He was encouraged to drink more fluids and staff reminded him through the day. Patient was tearful today a few times, but following his arriving to see him that went away. Reported off to night nurse encouraging staff to have patient talk with his via phone, when he is tearful during the day. It seem to calm him down. Patient had a shower today and he was a two person transfer to the shower room.
--- NOTE | 2019-07-08 20:00 | NUR ---
AND SON HERE TO VISIT. PT CHEERED UP. VERY CONVERSIVE. SOME SPEECH INAPPROPRIATE. SMILING AND COOPERATIVE. PT C/O SENSITIVITY TO LT MEDIAL ANKLE. LOTION APPLIED TO LEGS. PILLOW PLACED UNDER HEELS. PT REPORTS FEELS BETTER. DENIED NEED FOR TYLENOL. TO HS PILLS WHOLE WITH APPLESAUCE. NO CHOKING. WEARS BRIEFS FOR INCONTINENCE. CALL LIGHT IN REACH. REPEATED INSTRUCTIONS SEVERAL TIMES ON HOW TO USE CALL LIGHT FOR NURSE. BED ALARM SET.
[2019-07-09 04:37] VITALS: BP 136/75; PULSE 78; TEMP 97.8
--- NOTE | 2019-07-09 08:29 | NUR ---
Report from BAILEY Rosas. Pt in w/c for breakfast, yellow grippers/band on. Pt tearful this morning with SARAH Thornton. Pt states he doesn't feel good, when asked about pain, he rubs the right side of his abdomen. Tylenol given, pills 1 at a time with applesauce.
--- NOTE | 2019-07-09 12:34 | NUR ---
Pt to chair for lunch, had called prior to eating and wanted the bed "turned around so I can lay down in it" and re-oriented pt that the bed stays as it is, and that he should stay up in the chair for lunch. Pt now asks about his son, Prashant, and his as he has not seen them today and says that Prashant was supposed to bring cinnamon rolls from Mrs. [employer]ges[employer] this morning. Assured pt that it is early in the day, yet, and perhaps they decided not to come as the roads are very icy. Will attempt to get family on the phone with pt to reassure him.
--- NOTE | 2019-07-09 12:41 | NUR ---
Contacted family, Daria and Prashant, put pt on the phone with them and he is verbally upset with them, "I am going griffith raving mad, it's not funny, just get here."
--- NOTE | 2019-07-09 15:31 | NUR ---
Pt's and son Prashant here visiting. Pt called to toilet, had some incontinence of urine, provided urinal, Cedric and Shanna in to change pt in bed.
[2019-07-09 16:18] VITALS: BP 136/69; PULSE 75; TEMP 97.8
--- NOTE | 2019-07-09 20:00 | NUR ---
PT RESTING IN BED. RESTLESS AND AGITATED TONIGHT. SEROQUEL GIVEN ORDERED. USED URIANL. NO INCONTINENCE IN DIAPER. PT DENEIS PAIN. HAS SCATTERED THOUGHT PROCESS. LT SIDE INVOLUNTARITY JERKING OF UE/LE.
--- NOTE | 2019-07-09 22:42 | NUR ---
BED ALARM SOUNDING. PT SCOOTING OUT TO BOTTOM OFF BED. REPOSITIONED. CALL LIGHT IN REACH. BED ALARM SET. PT DENIES PAIN. JUST RESTLESS.
--- NOTE | 2019-07-10 02:00 | NUR ---
PT STILL AWAKE. RESTLESS. OFFERED TYLENOL- REFUSED. PT RELATES HE WANTS HIS CLOTHES TO GO HOME. AGITATED AT TIMES. PT OCCASIONALLY SETS OFF BED ALARM MOVING AROUND IN BED.
--- NOTE | 2019-07-10 04:18 | NUR ---
PT SLEEPING NOW. NO DISTRESS.
[2019-07-10 04:40] VITALS: BP 139/81; PULSE 81; TEMP 97.5
[2019-07-10 04:43] VITALS: BP 139/81
--- NOTE | 2019-07-10 05:45 | NUR ---
PT VERY AGITATED. TRYING TO GET OUT BED. TREMORS MORE SIGNIFICANT. PT ASSIST TO SIDE OF BED. ASSISTED WITH DRESSING. 2:1 TRANSFER TO RECLINER. BALANCE VERY UNSTEADY. LEANING BACK. CHAIR ALARM SET. CALL LIGHT IN REACH. PT RELATED HE IS WAITING FOR RAJNI TO COME PICK HIM UP. VERY CONFUSED.
--- NOTE | 2019-07-10 07:31 | NUR ---
Report from BAILEY Rosas. Pt was sliding down recliner with legs off to one side, confused, aggitated, called two staff to reposition pt in chair, set up assist for meals. Yellow grippers in place, call lt in reach, alarm on. Informed Sally, surgical charge nurse that pt is very confused, impulsive, and high fall risk.
--- NOTE | 2019-07-10 10:05 | NUR ---
Pt in good mood at this time, took pills with applesauce, chair alarm on, foot rest up. Call lt in reach. Yellow gripper socks in place. Pt asking about calling his family.
--- NOTE | 2019-07-10 11:59 | NUR ---
Pt in chair for lunch with set up assist.
--- NOTE | 2019-07-10 12:30 | NUR ---
Pt was getting frustrated and almost tearful, offered enc and repositioned in recliner laying back, call lt in reach, alarm on.
--- NOTE | 2019-07-10 13:41 | NUR ---
Assisted pt w/ calling , Daria. Pt calmed after talking to her on phone. Family here now.
[2019-07-10 15:02] VITALS: BP 123/99; PULSE 70; TEMP 98.7
--- NOTE | 2019-07-10 17:59 | NUR ---
Pt becoming restless, setting off bed alarm, throwing pillows and blankets on floor. Nurse reoriented pt, called so she could speak to him. Bed alarm on. Call lt in reach.
--- NOTE | 2019-07-10 19:28 | NUR ---
Family visited prior to shift change, gone now. Report to BAILEY Sosa. Pt in bed with yellow gripper socks in place, bed alarm on, call lt in reach.
[2019-07-11 03:49] VITALS: BP 148/89; PULSE 80; TEMP 97.9
[2019-07-11 03:50] VITALS: BP 148/89
--- NOTE | 2019-07-11 06:45 | NUR ---
PT DID SLEEP AT LEAST 5-6 HOURS LAST NIGHT. HE'S CALMER AND LESS AGITATED THIS MORNING.
--- NOTE | 2019-07-11 08:00 | NUR ---
Patient in bed resting. Alert and oriented to self. Assessment complete. Denies pain at this time. Patient states he is not hungry this AM. Takes pills whole with apple sauce. Denies further needs at this time.
--- NOTE | 2019-07-11 13:37 | NUR ---
Admission QIM scores were reviewed by the team. Code of 3 chosen for rolling left to right was determined by team discussion to be the most usual performance before interventions for this patient during the assessment period. Code of 1 chosen for sit to lying was determined by team discussion to be the most usual performance for this patient during the assessment period.--Beth Saxena, PD
--- NOTE | 2019-07-11 15:11 | NUR ---
SW met with the patient and his , Daria, to follow up after the weekend. The patient and his state that they are doing fine. They were both able to watch the [employer] game on Thursday. The patient and his state that therapy has been going well and that he has been working hard. SW reviewed how there would be the team conference meeting on Thursday and that SW would follow up with them that afternoon. The patient and his had no other questions or concerns at this time. SW to continue to follow.
[2019-07-11 16:41] VITALS: BP 111/74; PULSE 79; TEMP 97.9
--- NOTE | 2019-07-11 18:02 | NUR ---
Patient has done well throughout the day. Spouse at bedside during the day, assisted patient with meals. Denies pain at this time. Will report off to maintenance mechanic 2nd shift.
--- NOTE | 2019-07-11 20:00 | NUR ---
PATIENT RESTING IN BED, AWAKE, BED ALARM ENGAGED, DURING SHIFT CHANGE REPORT FROM DAY SHIFT NURSE.
--- NOTE | 2019-07-12 03:40 | NUR ---
RESTS QUIETLY IN BED WITH EYES CLOSED, DOES NOT AWAKEN WHEN ROOM ENTERED. BED ALARM ENGAGED.
[2019-07-12 05:47] VITALS: BP 124/72; PULSE 72; TEMP 97.6
[2019-07-12 07:00] VITALS: BP 148/89
--- NOTE | 2019-07-12 07:47 | NUR ---
PATIENT RESTING IN BED EATING BREAKFAST DURING SHIFT CHANGE REPORT GIVEN TO DAY SHIFT NURSE. BED ALARM ENGAGED
[2019-07-12 16:33] VITALS: BP 116/63; PULSE 77; TEMP 97.8
--- NOTE | 2019-07-12 18:30 | NUR ---
Patient did well today. His came to see him. Patient did not complain of any pain today. No Nausea. No other changes at this time. Call light within reach.
--- NOTE | 2019-07-12 20:00 | NUR ---
PATIENT IN BED DURING SHIFT CHANGE REPORT FROM DAY SHIFT NURSE, ATTEMPTING TO GET OUT OF BED, DISORIENTED TO PLACE/TIME, REQUESTING NEEDING TO GO TO [employer] TO GET PAPER WORK FROM HIS . INCONTINENT CARE GIVEN, INCONTINENT OF URINE. BED ALARM ENGAGED.
--- NOTE | 2019-07-12 20:23 | NUR ---
OBSERVED PATIENT ATTEMPTING TO GET OUT OF BED, PATIENT INCONTINENT, INCONTINENT CARE GIVEN. BED ALARM ENGAGED.
[2019-07-13 05:52] VITALS: BP 136/82; PULSE 79; TEMP 98
--- NOTE | 2019-07-13 07:35 | NUR ---
Patient in bed resting with eyes closed during shift change report given to day shift nurse. Bed alarm engaged.
[2019-07-13 08:08] VITALS: BP 148/89
--- NOTE | 2019-07-13 10:05 | NUR ---
Report from BAILEY Hagen. Pt stood up impulsively, was incont in diaper, was assisted by staff to BR, had BM. arrived to visit. Pt asking repeated questions, attempts to re-orient.
--- NOTE | 2019-07-13 15:54 | NUR ---
Pt restless today, asking why things are changed around, attempted to re-orient. Pt sitting up on side of bed, alarm going off, weak to stand without cues. Seroquel PRN for aggitation.
--- NOTE | 2019-07-13 16:06 | NUR ---
SHANON contacted the patient's , Daria, at her home phone (ph#[phone]) to review the IPR Team Conference Note. SHANON discussed the team's anticipated discharge date for next Thursday, 07/20, with either 24 hour care/assistance from a professional vs SNF. The patient's reports that she needs to speak to her three children to see what they think. Daria reports that she can be here tomorrow at 1300 to speak some more to SHANON. Daria also reports that she can bring in [facility]- paperwork that needs to be notarized. SHANON attempted to contact the notaryMary, to request if she can come up tomorrow at 1300. SHANON left her a voicemail and will continue to follow.
[2019-07-13 16:07] VITALS: BP 110/63; PULSE 70; TEMP 97.4
--- NOTE | 2019-07-13 18:45 | NUR ---
Pt impulsive to sitting bedside, confused, calling out, re-oriented, CART ATTENDANT assisting back into bed.
--- NOTE | 2019-07-13 19:02 | NUR ---
arrived to visit, she was concerned that pt was discharging tomorrow, informed pt of SW note. seems confused at times.
--- NOTE | 2019-07-13 20:00 | NUR ---
PATIENT RESTING IN BED DURING SHIFT CHANGE REPORT FROM DAY SHIFT NURSE. BED ALARM ENGAGED. PATIENT DISORIENTED X3, FOLLOWS SOME COMMANDS, INSIST HE HAS TO GO TO THE BACK, HIS NEEDED MONEY.
--- NOTE | 2019-07-13 20:59 | NUR ---
Report to ABILEY Hagen. Pt was asleep during shift change and has been impulsive throughout the day. Bed alarm on, call lt in reach, yellow gripper socks in place, fall wristbands in place, fall risk signs posted.
[2019-07-14 05:50] VITALS: BP 134/75; PULSE 63; TEMP 97.8
--- NOTE | 2019-07-14 07:22 | NUR ---
PATIENT RESTING IN BED DURING SHIFT CHANGE REPORT GIVEN TO DAY SHIFT NURSE. BED ALARM ENGAGED.
--- NOTE | 2019-07-14 08:00 | NUR ---
Patient resting in bedside recliner eating breakfast at this time. Patient is alert and oriented to self, answers most questions appropriately. Set up help given with breakfast, patient feeding self. Patient denies pain or further needs at this time, call light within reach, chair alarm on.
--- NOTE | 2019-07-14 15:19 | NUR ---
SHANON met with the patient and his , Daria, to follow up on preference for 24 hour care/assistance from a professional vs SNF. The patient's reports that they would prefer SNF. SW presented and explained the Patient Choice Form and provided her with Medicare.gov's list of SNF's in the [facility]. The patient and his chose [facility] and [facility]. They did not have a first and second preference at this time. SHANON contacted and faxed a referral to both facilities. SW awaiting their screens. SW also followed up on the documents that needed to be notarized. The patient's had an updated DPOA-HC for the patient that was in a folder that had already been notarized. She states that she does not have any other documents that need to be notarized. SW placed a copy of the updated DPOA-HC is his chart. The patient's DPOA-HC is his . The first alternate is his son, Prashant Duque ([facility]). Second alternate is his daughter, Ashlyn Soto ([place]). The third alternate is his son, Lino Duque ([place]). SW to continue to follow.
[2019-07-14 15:21] VITALS: BP 114/67; PULSE 66; TEMP 97.2
--- NOTE | 2019-07-14 16:14 | NUR ---
Larisa, at [facility], reports that they are unable to accept the patient. SW to inform the patient and his and will continue to follow.
--- NOTE | 2019-07-14 16:38 | NUR ---
SHANON met with the patient and his , Daria, to update on Tu. Daria looked over the Medicare.gov list of SNF's again for another preference. Daria reports that they would prefer [facility], if they have SNF. SHANON contacted [facility]. They report that they do not have SNF, but that their hospital has a swing bed. SHANON informed the patient and his and informed them of [facility]. The patient and his report that they would then prefer [facility]. SHANON contacted Leisa at [facility]. Leisa reports that she will send the referral out to her team. SW to continue to follow.
--- NOTE | 2019-07-14 17:51 | NUR ---
Patient resting in bedside recliner at this time, at bedside. Patient remains alert and partially oriented, currently eating dinner. Patient continues to deny pain or further needs, call light within reach.
--- NOTE | 2019-07-14 21:00 | NUR ---
PT RESTING IN BED. DROWSY. NO CHANGE IN DEMENTIA. COOPERATIVE. TAKES MEDICATIONS WITH APPLESAUCE. DENIES PAIN. CALL LIGHT IN REACH. BED ALARM SET.
[2019-07-15 04:55] VITALS: BP 127/73; PULSE 68; TEMP 97.3
--- NOTE | 2019-07-15 06:21 | NUR ---
PT RESTED WELL THROUGH THE NIGHT. REMAINS INCONTINENT OF URINE. PT DENIES ANY PAIN. PLEASANT AND COOPERAIVE THIS AM.
[2019-07-15 08:00] VITALS: BP 148/89
--- NOTE | 2019-07-15 14:10 | NUR ---
Leisa, at [facility], reports that they are still reviewing the patient. She states that she will be gone next week and that SW will need to contact Altagracia (ph#[phone]) on Thursday for any updates. If Altagracia is unavailable, then Leisa Sanchez (ph#[phone]). Nidia ([phone]) will be the person to contact there on Thursday and Thursday. SHANON to continue to follow.
[2019-07-15 16:14] VITALS: BP 127/75; PULSE 73; TEMP 97.2
--- NOTE | 2019-07-15 17:43 | NUR ---
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 Seems down about it, enc. Bed alarm on, call lt in reach. Yellow gripers/wrist band in place.
--- NOTE | 2019-07-15 20:00 | NUR ---
Patient calls for assist with urinal. Patient had brief off at foot of bed and small amount incontinence of urine. Nurse assisted to place and empty urinal and cleanse/apply new brief. Patient denies pain at this time. Tearful at times and worries about and kids. Reassured. Alert to self only. HS meds all reviewed and given 1 at a time in applesauce.
--- NOTE | 2019-07-15 20:29 | NUR ---
Report to BAILEY Little.
--- NOTE | 2019-07-15 21:00 | NUR ---
Patient sitting up on side of bed at foot of bed. States need to urinate. Alarms alarming. Assisted to rest back in bed and urinal placed/voids.
--- NOTE | 2019-07-15 22:15 | NUR ---
Patient rests on left side with eyes closed. Respirations with ease.
--- NOTE | 2019-07-16 00:20 | NUR ---
Patient awake resting quietly in bed. Denies need for urinal.
--- NOTE | 2019-07-16 02:30 | NUR ---
Patient rests with eyes closed. Respirations with ease.
[2019-07-16 04:14] VITALS: BP 146/76; PULSE 70; TEMP 97.5
--- NOTE | 2019-07-16 04:30 | NUR ---
Patient awake and offered urinal/voids and is incontinent moderate amount of urine/nurse changes brief and does lee care. Patient denies pain at this time. Patient rests with eyes closed at 0500.
[2019-07-16 07:00] VITALS: BP 148/89
--- NOTE | 2019-07-16 17:18 | NUR ---
SW received a call from patients nurse because patients was wondering what is going to happen to patient once he is discharged. SW reviewed notes and asked for Patients 's name and contact information so that she can be contacted with information. 's name is Daria number is [phone].
[2019-07-16 18:39] VITALS: BP 153/82; PULSE 72; TEMP 98.2
--- NOTE | 2019-07-16 19:50 | NUR ---
Patient assisted to use urinal and nurse changed brief. HS meds along with tylenol reviewed and given in applesauce. Patient thinks he's in [place] on fishing trip-reoriented. Pleasant.
--- NOTE | 2019-07-16 21:00 | NUR ---
Rests with eyes closed.
--- NOTE | 2019-07-16 22:25 | NUR ---
Patient resting in bed awake and has brief open. Incontinent of urine and changed and instructed to reposition up in bed-does. Denies pain or needs. Urinal placed but no further void.
--- NOTE | 2019-07-17 02:00 | NUR ---
RESTS WITH EYES CLOSED.
[2019-07-17 04:24] VITALS: BP 130/91; PULSE 70; TEMP 97.4
--- NOTE | 2019-07-17 05:57 | NUR ---
Awake and incontinent of urine and changed. Was incontinent of urine at 0430 and changed. Pleasantly confused.
--- NOTE | 2019-07-17 14:08 | NUR ---
PT HAS BEEN AGITATED THIS AM. GIVEN SEROQUEL 25 MG AT 1000. PT SETTLED DOWN FOR AWHILE. PT HAS TAKEN OFF HIS BRIEFS THREE TIMES. HE REPORTS BEING TOO WARM. PJ PANTS REMOVED. REASSURED PT THAT HIS WILL BE HERE TODAY. PT RESETTLED IN BED. HE HAS BEEN ABLE TO USE THE URINAL THREE TIMES TODAY WITH OUTPUT OF 300CC LIGHT YELLOW URINE. CALL LIGHT IN REACH AND BED ALARMS ON. CAME TO HOSPITAL AROUND 1330 AND PT GOT UP TO SIT IN CHAIR, BRIEFS AND PJ BOTTOMS PUT BACK ON.
[2019-07-17 18:01] VITALS: BP 125/74; PULSE 77; TEMP 98.2
--- NOTE | 2019-07-17 19:03 | NUR ---
PATIENT RESTING IN BED DURING SHIFT CHANGE REPORT FROM DAY SHIFT NURSE. BED ALARM ENGAGED.
--- NOTE | 2019-07-18 01:09 | NUR ---
RESTING IN BED QUIETLY WITH EYES CLOSED, DOES NOT AWAKEN WHEN ROOM ENTERED. BED ALARM ENGAGED.
--- NOTE | 2019-07-18 03:14 | NUR ---
RESTING IN BED WITH EYES CLOSED, DOES NOT AWAKEN WHEN ROOM ENTERED. BED ALARM ENGAGED.
[2019-07-18 05:37] VITALS: BP 123/82; PULSE 90; TEMP 97.5
[2019-07-18 07:00] VITALS: BP 148/89
--- NOTE | 2019-07-18 07:30 | NUR ---
PATIENT RESTING IN BED DURING SHIFT CHANGE REPORT GIVEN TO DAY SHIFT NURSE. BED ALARM ENGAGED.
--- NOTE | 2019-07-18 11:00 | NUR ---
Patient very tearful today. He is requesting to talk to his , but has not been available to come in today. , Daria was called and she requested to talk to SW. Social work will be calling her this morning. Patient encouraged to use his call light when needed. He has been more anxious this afternoon. He is currently working with PT at this time. Will continue to monitor.
--- NOTE | 2019-07-18 14:44 | NUR ---
Patient resting in bed at this time with call light in reach, slip proof socks on and bed alarm is on. Patient denies pain at this time. Refused his lunch stating that his stomach was upset, because he didn't know where Daria was at this morning. He was just working with therapy and thought he saw his in another patient's room. This nurse called and left a couple of messages for his to return call. Will continue to monitor.
[2019-07-18 16:00] VITALS: BP 101/74; PULSE 92; TEMP 98.5
--- NOTE | 2019-07-18 16:51 | NUR ---
Electron Gun Inspector contacted patient's 's cell phone and Daria's friend Zaynab answered. Zaynab told SHANON that Daria found placement for patient at [facility] in [place]. Zaynab advised Daria would call SHANON back. SHANON to continue to follow on placement.
[2019-07-18 17:04] VITALS: BP 139/78; PULSE 82; TEMP 97.8
--- NOTE | 2019-07-18 19:11 | NUR ---
PATIENT RESTING IN BED, HAS VISITORS DURING SHIFT CHANGE REPORT FROM DAY SHIFT NURSE. BED ALARM ENGAGED.
--- NOTE | 2019-07-18 19:53 | NUR ---
Patient's stopped by this evening with two of her friends. She brought татьяна and she her friends and the patient all ate together. Patient was laughing and enjoying their company. There was one episode of tearfulness when first arrived and was discussing his SNF placement in front of him. He calmed down once his shaved him and gave him some well deserved attention.
--- NOTE | 2019-07-18 20:00 | NUR ---
CONTINUES TO NEED FREQUENT CUEING WITH REPOSITIONING IN BED FOR INCONTINENT CARE. SPEECH CLEAR BUT NOT ORIENTED TO PLACE, TIME, EVENT. STATES NAME AND CORRECTLY WHEN ASKED.
--- NOTE | 2019-07-19 00:51 | NUR ---
RESTING IN BED WITH BED ALARM ENGAGED. NO NEEDS REPORTED.
--- NOTE | 2019-07-19 02:44 | NUR ---
RESTING IN BED WITH EYES CLOSED, DOES NOT AWAKEN WHEN ROOM ENTERED. BED ALARM ENGAGED.
[2019-07-19 05:36] VITALS: BP 136/84; PULSE 76; TEMP 97.8
[2019-07-19 07:00] VITALS: BP 148/89
--- NOTE | 2019-07-19 07:23 | NUR ---
PATIENT RESTING IN BED DURING CHANGE OF SHIFT REPORT GIVEN TO DAY SHIFT NURSE. BED ALARM ENGAGED.
--- NOTE | 2019-07-19 07:34 | NUR ---
Bedside report from BAILEY Hagen. Pt confused, frustrated, denies appetite for breakfast after set up on tray. Pt 2 assist to BSC, passed gas, assisted with lower body dressing.
--- NOTE | 2019-07-19 10:03 | NUR ---
Pt has been impulsive and confused this morning, mood is more agreeable now. In chair with feet up and alarm on, call lt in reach.
--- NOTE | 2019-07-19 11:09 | NUR ---
Initial visit; Patient having a difficult time emotionally. Railroad Signal And Switch Operator encouraged him to talk, to let God's hands work through his who wants to help and all who are trying to help him. Railroad Signal And Switch Operator offered comfort and prayer and will return.
--- NOTE | 2019-07-19 11:10 | NUR ---
Vulcanized Fiber Unit Operator contacted patient's , Daria (ph#[phone]) to discuss discharge planning. Daria advised she planned on touring [facility] in [place] at some point today. SW provided update to Daria on [facility] and reported [facility] is still reviewing referral. SW asked Daria about her willingness to allow SW to send referrals to other SNFs locally. Daria stated she is willing to consider [facility], and [facility]. SW contacted all three and faxed referrals. SHANON was contacted by [facility] who advised they cannot accept referral due to lewy body dementia diagnosis. SHANON was contacted by Ifeoma at [facility] who confirmed patient discharging skilled. SW advised Ifeoma patient scheduled for discharge tomorrow. SW to continue to follow.
--- NOTE | 2019-07-19 11:44 | NUR ---
Joint Cutter contacted ONDINA Jacob at [facility] who advised they were not able to accept referral at this time. SW to continue to follow.
--- NOTE | 2019-07-19 12:52 | NUR ---
Broadcast Operations Manager met with Mohini Brood Hatchery Manager and Noel Nash from [facility] in [place]. Charity advised they can meet patient's needs, provide therapy and take patient tomorrow. SHANON faxed clinical information to [facility]. SHANON contacted Daria, patient's and left a message. SHANON updated RNJaki and IPR Director, Beth.
--- NOTE | 2019-07-19 14:48 | NUR ---
Pt in better mood at this time. Drank ensure. In chair, alarm on, call lt in reach.
[2019-07-19 16:00] VITALS: BP 120/77; PULSE 92; TEMP 97.7
--- NOTE | 2019-07-19 16:21 | NUR ---
[facility] reports [facility] can accept the patient for a custodial stay.
--- NOTE | 2019-07-19 16:29 | NUR ---
SHANON contacted the patient's , Daria, to update on referrals. Daria reports that she would prefer [facility], due to it being closer to their home. The patient's plans to be here at 1000 tomorrow morning. SHANON also explained the IM form to Daria, via phone. Daria verbalized understanding and gave SHANON her verbal consent. SHANON contacted and updated Ifeoma at [facility]. Ifeoma reports that they would be able to accept the patient tomorrow, 07/20. SHANON to continue to follow and will contact [facility] tomorrow morning for a transport time.
--- NOTE | 2019-07-19 16:41 | NUR ---
SHANON contacted DEEPALI Nash at [facility] to inform her that [facility] and to thank her for looking at the referral.
--- NOTE | 2019-07-19 17:32 | NUR ---
Pt's visiting. Pt in chair for supper, chair alarm on, call lt in reach. Pt refusing to eat supper, removed tray and offered just roll with butter and fruit and milk.
--- NOTE | 2019-07-19 19:48 | NUR ---
PATIENT UP IN CHAIR DURING SHIFT CHANGE REPORT FROM DAY SHIFT NURSE. CHAIR ALARM ENGAGED, IN ROOM. NO NEEDS REPORTED.
--- NOTE | 2019-07-20 03:29 | NUR ---
PATIENT RESTING IN BED WITH EYES CLOSED, DOES NOT AWAKEN WHEN ROOM ENTERED. BED ALARM ENGAGED.
--- NOTE | 2019-07-20 04:04 | NUR ---
PATIENT USED CALL LIGHT TO HAVE STAFF ASSIST IN GETTING HIM SET UP TO USE URINAL, PATIENT COOPERATIVE, FOLLOWING COMMANDS WELL CURRENTLY.
[2019-07-20 05:45] VITALS: BP 110/66; PULSE 66; TEMP 97.5
--- NOTE | 2019-07-20 06:30 | NUR ---
Spoke with [facility] (assisted living) wanting information about patient's ability to transfer, if able to work with assist X1 staff with transfers. Informed patient yesterday after shift change report, before 1900, patient able to transfer from chair to bed with 1 mod assist with 2nd staff SBA with GB transfer only, walker not used during transfer at that time and informed Lyla that patient would probably have done okay with X1 assist with GB if had walker, also considering if patient has had enough rest, informed patient on PRN Seroquel in addition to QHS Seroquel. Lyla requested/given contact # for patient's , Daria. Call ended with no other patient related needs.
[2019-07-20 07:00] VITALS: BP 153/79
--- NOTE | 2019-07-20 07:10 | NUR ---
PATIENT RESTING IN BED DURING SHIFT CHANGE REPORT GIVEN TO DAY SHIFT NURSE. BED ALARM ENGAGED.
--- NOTE | 2019-07-20 08:00 | NUR ---
Patient resting in bedside recliner eating breakfast at this time. Patient is alert and partially oriented, answers most questions appropriately. Patient denies pain or needs at this time, call light within reach.
--- NOTE | 2019-07-20 14:25 | NUR ---
Follow-up visit; Patient appeared a little more in control of his emotions today and was able to express his thoughts and feelings. Field Court Researcher offered optimistic answers and talked about ba with him and offered God's blessings.
[2019-07-20] MEDS ORDERED: SEROQUEL 2525 MG/TAB PO (14:34)
--- NOTE | 2019-07-20 15:29 | NUR ---
Report called to recieving facility. Administered PRN anxiety medication due to patient becoming agitated while waiting for transport to SNF. Transport arrived at 1548, patient voided and transferred to wheelchair with x1 assist and walker. Patient taken to ED entrance by transport.
--- NOTE | 2019-07-20 17:03 | NUR ---
Cloth Weigher contacted patient's , Daria to review discharge plan which was for patient to discharge to [facility] this afternoon. Daria advised SW that patient can no longer go to [facility] because it was a "terrible place" and was "going to close soon". SW asked patient if she adressed these concerns with [facility] and she stated no and that patient is not to go there. SW to follow up on other placement options and will continue to follow.
--- NOTE | 2019-07-20 17:05 | NUR ---
Ed Transporter contacted [facility] who advised they were still reviewing referral. SHANON met with patient's , Daria and IPR Director, Beth to discuss a discharge plan. Beth reviewed options for discharge including SNF or Assisted Living. Daria advised she feels Assisted Living is a more ocean transportation intermediary solution and is agreeable to [facility], which evaluated patient yesterday. SHANON contacted Juanpablo at [facility] who advised they could accept patient today. 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 Juanpablo requested that Daria arrive to [facility] at 1430 to complete paperwork prior to admit. SHANON provided update to Daria who expressed understanding and is in agreeance with discharge plan. Daria stated she would arrive at [facility] at 1430. SHANON contacted [facility] to update on patient discharge plan. SHANON provided update to patient RN, Sophie and IPR Director, Beth. SHANON contacted [facility] and faxed discharge orders.
--- NOTE | 2019-07-21 13:22 | NUR ---
Discharge QIM scores were reviewed by the team. Code of 4 chosen for oral hygiene was determined by team discussion to be the most usual performance for this patient during the assessment period. Code of 2 chosen for toileting hygiene was determined by team discussion to be the most usual performance for this patient during the assessment period. Code of 4 chosen for rolling left to right was determined by team discussion to be the most usual performance for this patient during the assessment period. Code of 6 chosen for sit to stand was determined by team discussion to be the most usual performance for this patient during the assessment period.--Beth Saxena, PD
== END 2019-07-20 15:49 | DRG 948 ==
PROVIDERS: ADMIT Internal Medicine
DX: R53.81 Other malaise (principal); F05 Delirium due to known physiological condition; E44.0 Moderate protein-calorie malnutrition; G20 Parkinson's disease; E11.9 Type 2 diabetes mellitus without complications; I10 Essential (primary) hypertension; E78.5 Hyperlipidemia, unspecified; K21.9 Gastro-esophageal reflux disease without esophagitis; M10.9 Gout, unspecified; F02.80 Dementia in other diseases classified elsewhere, unspecified severity, without behavioral disturbance, psychotic disturbance, mood disturbance, and anxiety; Z91.09 Other allergy status, other than to drugs and biological substances; Z79.82 Long term (current) use of aspirin; Z68.28 Body mass index [BMI] 28.0-28.9, adult; Z88.9 Allergy status to unspecified drugs, medicaments and biological substances
CPT/HCPCS: 99231-AI; 99232-AI; 99239; J1644

== ENCOUNTER → 2019-10-13 | Outpatient (REF) ==
[~2019-10-13] MED LIST changes: +AMBIEN 5MG TABLE5 MG PO; +SINEMET 25/101 UDTAB PO
== END ==
LOC: COL.CARD 12:08
DX: I47.1 Supraventricular tachycardia (principal)

== ENCOUNTER 2020-03-19 19:20 | Emergency (ER) | payer MEDICARE, OTHER ==
[~2020-03-19] VITALS: Ht 193 cm; Wt 77.3 kg
[2020-03-19 19:25] VITALS: TEMP 97.7
[2020-03-19 19:52] LABS: BASO % 0.4 % (0.0-2.0); EOS # 0.2 (0.0-0.7); EOS % 2.3 % (0-4.0); GRAN # 5.2 (1.4-6.5); GRAN % 68.1 % (42.2-75.2); HEMOGLOBIN 12.2 g/dl (13.5-18.0); LYMPH # 1.6 (1.2-3.4); LYMPH % 20.8 % (20.0-51.0); MEAN CELL VOLUME 100 fl (80.0-100.0); MEAN CORPUSCULAR HEMOGLOBIN 34 pg (27.0-31.0); MEAN CORPUSCULAR HGB CONC 34 g/dl (33.0-37.0); MEAN PLATELET VOLUME 9.7 fl (7.4-10.4); MONO # 0.6 (0.1-0.6); PLATELET COUNT 185 K/mm3 (130-400); RED BLOOD COUNT 3.58 M/mm3 (4.20-5.60); REDCELL DISTRIBUTION WIDTH-CV 14.3 % (11.5-14.5)
[2020-03-19 19:57] LABS: HEMATOCRIT 35.8 % (42.0-52.0)
[2020-03-19 20:03] LABS: ALANINE AMINOTRANSFERASE 5 U/L (4-49); ALBUMIN 4.2 gm/dL (3.5-5.0); ALKALINE PHOSPHATASE 58 U/L (50-136); ANION GAP 8 mmol/L (7-16); AST,SGOT 25 U/L (15-37); BILIRUBIN,TOTAL 0.7 mg/dL (0.0-1.0); BLOOD UREA NITROGEN 17 mg/dL (9-20); CALCIUM 9.2 mg/dL (8.4-10.2); CARBON DIOXIDE 29 mmol/L (22-30); CHLORIDE 101 mmol/L (98-107); CREATINE KINASE 63 U/L (55-170); CREATININE, serum 1.38 (0.66-1.25); GLUCOSE 129 mg/dL (74-106); SODIUM 138 mmol/L (137-145); TOTAL PROTEIN 7.7 gm/dL (6.4-8.2)
[2020-03-19 20:09] LABS: INR 1.1 (0.8-3.0); PROTHROMBIN TIME 12.1 SECONDS (9.7-12.8)
[2020-03-19 20:15] LABS: TROPONIN-I < 0.012 ng/mL (0.000-0.035)
[2020-03-19 22:13] VITALS: BP 153/67; PULSE 63
== END 2020-03-19 22:54 | disposition home or self-care (01) ==
LOC: COL.ER 19:20
PROVIDERS: Emergency Medicine
DX: R55 Syncope and collapse (principal); R00.1 Bradycardia, unspecified; I10 Essential (primary) hypertension; G20 Parkinson's disease; I25.10 Atherosclerotic heart disease of native coronary artery without angina pectoris; Z95.5 Presence of coronary angioplasty implant and graft; Z88.8 Allergy status to other drugs, medicaments and biological substances; Z79.82 Long term (current) use of aspirin
CPT/HCPCS: J7030

== ENCOUNTER 2020-11-27 10:14 | Inpatient (IN) | payer MEDICARE, OTHER ==
[~2020-11-27] VITALS: Ht 182.9 cm; Wt 81.8 kg
[2020-11-27 10:36] LABS: BASO % 0.7 % (0.0-2.0); EOS # 0.1 (0.0-0.7); EOS % 1.8 % (0-4.0); GRAN # 3.7 (1.4-6.5); GRAN % 61.6 % (42.2-75.2); HEMOGLOBIN 12.3 g/dl (13.5-18.0); LYMPH # 1.5 (1.2-3.4); LYMPH % 24.4 % (20.0-51.0); MEAN CELL VOLUME 100 fl (80.0-100.0); MEAN CORPUSCULAR HEMOGLOBIN 33 pg (27.0-31.0); MEAN CORPUSCULAR HGB CONC 33 g/dl (33.0-37.0); MONO # 0.7 (0.1-0.6); MONO % 11.2 % (1.7-9.3); PLATELET COUNT 194 K/mm3 (130-400); RED BLOOD COUNT 3.68 M/mm3 (4.20-5.60); REDCELL DISTRIBUTION WIDTH-CV 13.5 % (11.5-14.5)
[2020-11-27 10:46] LABS: HEMATOCRIT 36.8 % (42.0-52.0)
[2020-11-27 10:47] LABS: ALANINE AMINOTRANSFERASE 13 U/L (4-49); ALBUMIN 3.8 gm/dL (3.5-5.0); ALKALINE PHOSPHATASE 83 U/L (50-136); ANION GAP 6 mmol/L (7-16); AST,SGOT 24 U/L (15-37); BILIRUBIN,TOTAL 0.7 mg/dL (0.0-1.0); BLOOD UREA NITROGEN 17 mg/dL (9-20); CALCIUM 9.1 mg/dL (8.4-10.2); CARBON DIOXIDE 24 mmol/L (22-30); CHLORIDE 106 mmol/L (98-107); CREATININE, serum 1.44 (0.66-1.25); GLUCOSE 104 mg/dL (74-106); POTASSIUM 3.4 mmol/L (3.4-5.0); SODIUM 136 mmol/L (137-145); TOTAL PROTEIN 7.6 gm/dL (6.4-8.2)
[2020-11-27 10:59] LABS: COLLECTION METHOD CATHETER
[2020-11-27 11:00] LABS: TROPONIN-I < 0.012 ng/mL (0.000-0.035)
[2020-11-27 11:07] LABS: MUCOUS Present /lpf; PH 6 (5-8); SQUAMOUS EPITHELIAL 0-2 /hpf; URINE APPEARANCE Hazy; URINE BACTERIA None Seen /hpf; URINE BILIRUBIN Negative (NEGATIVE); URINE BLOOD 1+ (NEGATIVE); URINE COLOR Yellow; URINE GLUCOSE Negative (NEGATIVE); URINE KETONE Negative (NEGATIVE); URINE LEUKOCYTE ESTERASE Negative (NEGATIVE); URINE NITRATE Negative (NEGATIVE); URINE PROTEIN(semi-quant) Negative (NEGATIVE); URINE RBC 20-50 /hpf
[2020-11-27 11:11] LABS: C-REACTIVE PROTEIN 0.8 mg/dL (0.0-0.9)
[2020-11-27 15:41] VITALS: BP 124/62; PULSE 72; TEMP 97.5
--- NOTE | 2020-11-27 16:27 | NUR ---
PT ARRIVED TO UNIT FROM ED, CARE OF PATIENT ASSUMED. RAJNI AND FAMILY FRIEND AT BEDSIDE. PT IS ALERT AND ORIENTED TO PERSON ONLY, NO CURRENT COMPLAINTS OF PAIN OR DISCOMFORT. PT IS CONFUSED AND UNABLE TO EXPLAIN WHY HE WAS HOSPITALIZED OR ANY EVENTS LEADING UP TO HOSPITALIZATION. NEITHER PATIENT NOR ARE GOOD HISTORIANS ABOUT MEDICATION MANAGEMENT FOR TODAY OR DAY PRIOR. PT HAS A SMALL, ROUND, BLISTER TO L UPPER THIGH AND ABRASION TO R FRONT OF EDGAR. CURRENTLY LEFT OPEN TO AIR, NO DRAINAGE, FOUL ODOR OR OTHER INDICATION OF INFECTION. PT CHANGED OVER TO FALL PRECAUTION GOWN, NON-SKID SOCKS APPLIED AND BED ALARM SET. CALL GERARD IN REACH, REMAINS AT BEDSIDE. WHILE IN PATIENTS ROOM, PTS SISTER WILL CALLED. WILL IS A RETIRED RN, DEMANDING MEDICAL INFORMATION ABOUT HER BROTHER. RAJNI ADVISED THAT MEDICAL STAFF COULD SPEAK WITH HER REF PTS STATUS HOWEVER SHE IS INTIMIATED BY SISTER AND DOES NOT WISH TO BE THE ONE TO RELAY INFORMATION. REQUESTING MEDICAL TEAM CALL SISTER WITH UPDATE. PT HAS KEYBOARDING TEACHER CARE THAT IS IN HOUSE X2/WEEK THROUGH [facility]. SPOKE ON PHONE WITH KEYBOARDING TEACHER CARE CORPORATE DEVELOPMENT ANALYST WHO STATED THAT THIS MORNING WHEN SHE WENT TO HOME PT WAS CONFUSED AND WAS ALSO SOMEWHAT CONFUSED. STATED THAT HE HAD BEEN UP ALL NIGHT HALLUCINATING AND "SWINGING AT THE AIR". KEYBOARDING TEACHER CARE EMPLOYEE ALSO STATED THAT THERE WERE A NUMBER OF UNIDENTIFIED PILLS ON THE NIGHTSTAND THAT THE PTS WAS UNABLE TO STATE WHAT THEY WERE OR WHY THEY WERE IN PATIENTS REACH. UNKNOWN AT THIS TIME IF ANY WERE INGESTED. WHEN DISCUSSED WITH , SHE STATED THAT PATIENT GETS MEDICATIONS PRE-SORTED FROM PHARMACY. DENIES MEDICATION ERRORS. PT CURRENTLY RESTING IN BED, BREATHING EVEN AND UNLABORED, NO SIGNS OF DISTRESS. WILL CONTINUE TO MONITOR.
[2020-11-27 19:59] VITALS: BP 138/74; PULSE 70; TEMP 97.8
--- NOTE | 2020-11-27 20:00 | NUR ---
Patient is alert and only oriented to his name. He denies any pain. Heart sounds are normal/regular and lungs are clear. No edema is noted. Patient has been incontinent of urine and is changed at this time; no skin breakdown is seen. IV fluids infusing into left forearm IV. No new concerns, bed alarm set and close monitoring in use.
[2020-11-28] VITALS (9 sets, daily range): BP systolic 105–174; BP diastolic 79–91; PULSE 65–138; TEMP 97.9–98.5
[2020-11-28 06:24] LABS: BASO # 0.1 (0.0-0.2); BASO % 0.8 % (0.0-2.0); EOS # 0.2 (0.0-0.7); EOS % 2.4 % (0-4.0); GRAN % 64.4 % (42.2-75.2); HEMOGLOBIN 11.5 g/dl (13.5-18.0); LYMPH # 1.4 (1.2-3.4); LYMPH % 21.8 % (20.0-51.0); MEAN CELL VOLUME 100 fl (80.0-100.0); MEAN CORPUSCULAR HEMOGLOBIN 33 pg (27.0-31.0); MEAN CORPUSCULAR HGB CONC 33 g/dl (33.0-37.0); MEAN PLATELET VOLUME 8.9 fl (7.4-10.4); MONO # 0.6 (0.1-0.6); MONO % 10.3 % (1.7-9.3); PLATELET COUNT 160 K/mm3 (130-400); RED BLOOD COUNT 3.44 M/mm3 (4.20-5.60); REDCELL DISTRIBUTION WIDTH-CV 13.6 % (11.5-14.5)
[2020-11-28 06:34] LABS: HEMATOCRIT 34.4 % (42.0-52.0)
[2020-11-28 06:39] LABS: ANION GAP 4 mmol/L (7-16); BLOOD UREA NITROGEN 13 mg/dL (9-20); CALCIUM 8.6 mg/dL (8.4-10.2); CARBON DIOXIDE 25 mmol/L (22-30); CHLORIDE 107 mmol/L (98-107); GLUCOSE 95 mg/dL (74-106); POTASSIUM 3.3 mmol/L (3.4-5.0); SODIUM 136 mmol/L (137-145)
[2020-11-28 06:53] LABS: TROPONIN-I < 0.012 ng/mL (0.000-0.035)
--- NOTE | 2020-11-28 08:18 | NUR ---
Pt is currently sleeping in bed at this time. Provider contacted this RN to discuss pt's med reconciliation. Unable to contact , left a message. No other concerns at this time.
[2020-11-28] MEDS ORDERED: FLOMAX 0.40.4 MG/CAP PO (10:38)
[2020-11-28] MEDS ORDERED: LIPITOR 40MG TA40 MG PO (10:39)
[2020-11-28] MEDS ORDERED: LEVAQUIN 5500 MG/TA1 PO (10:39)
[2020-11-28] MEDS ORDERED: SYMMETREL100 MG PO (10:53)
[2020-11-28] MEDS ORDERED: REMERON30 MG PO (10:56)
[2020-11-28] MEDS ORDERED: LEXAPRO 5MG5 MG PO (10:58)
[2020-11-28] MEDS ORDERED: LASIX 20MG TABL20 MG PO (10:59)
[2020-11-28] MEDS ORDERED: ARICEPT10 MG PO (10:59)
--- NOTE | 2020-11-28 15:15 | NUR ---
First visit from the microwave radio technician. Patient was going thru a procedure. prayed for patient.
--- NOTE | 2020-11-28 15:16 | NUR ---
Real Estate Professional met with the patient and the patient's , Daria to complete intake. The patient was sleeping. The patient lives in [place] with Daria. Daria assist with showers and the patient does some of his ADLs. The patient has a cane, walker, shower chair, wheelchair. Daria reports the patient receives respite visit on Tuesdays and for two hours each week. Daria could not recall the who provides the services. The patient's PCP is Dr. Carmona and patient receives medications from [facility]. The patient has advanced directives in the EMR and they designate Daria and their son, Prashant. PT is recommending SNF. The patient is observation status and has not been in any hospital the last 30 days. Therefore, the patient may likely have to be private pay unless SNF can do an emergency admission. Daria states they can maybe pay a week. SW discussed Medicare.gov's list of SNFs. Referrals sent to [facility], [facility], [facility], and [facility] in [place]. SHANON contacted Dr. Carmona's office and they report the patient has had [facility] in the past. SHANON contacted Bette with [facility] and she confirms they have had the patient for services. He was discharged from home health services in July 2020. Russ from [facility] contacted this SW and reports they are reviewing the referral. Also that the private pay for a semi private room is $193.14 and for a private room $210.89. After December, a semi private room is $200.14 and private room $217.89. *Discharge disposition at this time: Possibly SNF or home with home health. Referrals sent. Awaiting screens.
--- NOTE | 2020-11-28 16:14 | NUR ---
[facility] declined the patient. Discharge disposition at this time: Possibly SNF or Home with Home Health. SNF referrals sent. Awaiting screens.
--- NOTE | 2020-11-28 20:00 | NUR ---
Assessment complete. Patient is alert but pleasantly confused, only oriented to self. He has no complaints of pain. Comfort measures are provided. No new concerns are noted. Bed alarm set and call light in reach. Will continue to monitor.
--- NOTE | 2020-11-28 20:26 | NUR ---
PT HAD UNEVENTFUL DAY, NO CONCERNS. CALL LIGHT ALWAYS WITHIN REACH, AT BEDSIDE MAJORITY OF THE DAY. SOCIAL WORK IS WORKING WITH THE FAMILY REGARDING DPOA. THERE ARE NO OTHER CONCERNS AT THIS TIME.
--- NOTE | 2020-11-29 03:00 | NUR ---
This RN informed by LEAD BASED PAINT TECHNICIAN that patient has had approximately 1900 mls of urine output from external catheter from 7824-2647. Elissa PIPE STRESS ENGINEER notified and orders 24 hour urine collection. 24 hour urine started at 0330.
[2020-11-29 03:22] LABS: BASO % 0.6 % (0.0-2.0); EOS # 0.2 (0.0-0.7); EOS % 2.9 % (0-4.0); GRAN # 3.8 (1.4-6.5); GRAN % 58.3 % (42.2-75.2); HEMOGLOBIN 11.7 g/dl (13.5-18.0); LYMPH # 1.7 (1.2-3.4); MEAN CELL VOLUME 102 fl (80.0-100.0); MEAN CORPUSCULAR HEMOGLOBIN 33 pg (27.0-31.0); MEAN CORPUSCULAR HGB CONC 33 g/dl (33.0-37.0); MEAN PLATELET VOLUME 9.1 fl (7.4-10.4); MONO # 0.8 (0.1-0.6); MONO % 11.7 % (1.7-9.3); PLATELET COUNT 178 K/mm3 (130-400); RED BLOOD COUNT 3.54 M/mm3 (4.20-5.60); REDCELL DISTRIBUTION WIDTH-CV 13.6 % (11.5-14.5)
[2020-11-29 03:36] LABS: CALCIUM 8.9 mg/dL (8.4-10.2); CREATININE, serum 1.26 (0.66-1.25); POTASSIUM 3.6 mmol/L (3.4-5.0)
[2020-11-29 04:39] VITALS: BP 150/87; PULSE 87; TEMP 98.2
[2020-11-29 07:48] VITALS: BP 146/95; PULSE 72; TEMP 97.7
--- NOTE | 2020-11-29 08:56 | NUR ---
Pt assessment complete. Pt is sitting up in bed upon entry, he is oriented to self and place. Pt forgetful with a lot of conversation. Reports he didn't know where he was last night. He denies any pain. No N/V. Voiding per external catheter. Urine on ice for 24 hour urine. POC discussed with patient. Fall precautions in place.
[2020-11-29 10:28] VITALS: BP 131/79; PULSE 75
[2020-11-29 11:16] VITALS: BP 127/79; PULSE 75; TEMP 97.7
--- NOTE | 2020-11-29 13:29 | NUR ---
Larisa from [facility] reports they cannot accept the patient for post acute rehab. Wilner from [facility] still reviewing the referral. Vivienne from [facility] in [place] reports they are still reviewing the referral.
--- NOTE | 2020-11-29 13:38 | NUR ---
The phone numbers for the patient's sons and daughter are below: Prashant # Michael # Ashlyn #
--- NOTE | 2020-11-29 16:02 | NUR ---
Elementary School Social Worker staffed with SHANON Palafox and DEEPALI Lang from [facility] and they were inquiring about the patient being inpatient status. SHANON to discuss this with Nurse Oil And Gas Lease Pumper. Per STANTON there is not a diagnosis that qualifies for inpatient status. SHANON collaborated the above information with [employer]. SHANON met with the patient, patient's Daria, and the patient's son, Prashant (via cell phone) to discuss the discharge plan. SHANON discussed that since the patient is obs status the patient would be private pay for placement. SHANON discussed placement and the denials from the local SNFs. Prashant was interested in sending referral to [facility] in [place]. Prashant states that they would do what it takes to get the best care for his dad, including private paying for a facility. Prashant would like to reach out to the patient's PCP Dr. Carmona to see what he recommends. Referral sent to [facility] in [place]. *Discharge disposition at this time: Possible SNF. Referrals sent [facility] and [facility] in [place]. Awaiting screens.
--- NOTE | 2020-11-29 16:35 | NUR ---
Mohini Ceballos contacted this [facility] Regener[facility] regarding the referral and they will review the referral then inform of acceptance or denial. Private pay rates for semi-private is $229 and a private room is $239, a day. Vivienne from [facility] [place] reports they have talked the patient's son and they will be able to accept the patient for post acute rehab and can tentatively tack picker the patient at 1330 on Thursday 11/30. Vivienne requested orders needed by 8:30 or 9:00 AM. SHANON contacted the patient's son, Prashant regarding acceptance and he was in agreeance. Covid test ordered. SHANON collaborated the above with the patient's nurse and the PA. Nurse to inform patient and the patient's . *Discharge disposition: [facility] for post acute rehab.
[2020-11-29 16:40] VITALS: BP 131/77; PULSE 69; TEMP 97.6
--- NOTE | 2020-11-29 18:47 | NUR ---
Pt had uneventful day, remained intermittently confused. Was able to get patient up to the cammode once with assistance of two, very weak gait. Good appetite. External catheter draining without issues, urine on ice. Fall precautions in place.
[2020-11-29 19:47] VITALS: BP 135/74; PULSE 69; TEMP 97.6
--- NOTE | 2020-11-29 20:40 | NUR ---
FUR MIXER OPERATOR notifies this RN at this time that patient in room 318 has fallen. The fall was unwitnessed. This RN immediately goes to room 318 and Elissa Romo is at patient's side. PAtient is alert and states he is not in any pain. He also states he has hit his head on the wall. Patient is assessed and no injuries are noted. Vital signs are stable. STAT CT of head and spine, in addition to neuro checks are ordered. Will continue close monitoring of patient.
[2020-11-30] VITALS (7 sets, daily range): BP systolic 118–142; BP diastolic 68–99; PULSE 66–98; TEMP 97.4–98.6
[2020-11-30 05:09] LABS: URINE TOTAL VOLUME 2770 mL
[2020-11-30 05:38] LABS: 12 HR URINE TOTAL VOLUME 1.39 L
[2020-11-30 06:54] LABS: BASO % 0.5 % (0.0-2.0); EOS # 0.2 (0.0-0.7); EOS % 2.8 % (0-4.0); GRAN # 3.9 (1.4-6.5); GRAN % 59.8 % (42.2-75.2); HEMOGLOBIN 11.4 g/dl (13.5-18.0); LYMPH # 1.6 (1.2-3.4); LYMPH % 25.1 % (20.0-51.0); MEAN CELL VOLUME 101 fl (80.0-100.0); MEAN CORPUSCULAR HEMOGLOBIN 34 pg (27.0-31.0); MEAN CORPUSCULAR HGB CONC 33 g/dl (33.0-37.0); MEAN PLATELET VOLUME 9.1 fl (7.4-10.4); MONO # 0.7 (0.1-0.6); MONO % 11.5 % (1.7-9.3); PLATELET COUNT 157 K/mm3 (130-400); RED BLOOD COUNT 3.37 M/mm3 (4.20-5.60); REDCELL DISTRIBUTION WIDTH-CV 13.8 % (11.5-14.5)
[2020-11-30 06:56] LABS: HEMATOCRIT 34.1 % (42.0-52.0)
[2020-11-30 07:14] LABS: CALCIUM 8.6 mg/dL (8.4-10.2); CREATININE, serum 1.19 (0.66-1.25); POTASSIUM 3.6 mmol/L (3.4-5.0)
--- NOTE | 2020-11-30 09:05 | NUR ---
Patient resting in bed. Hospitalist team rounded. Orthostatic blood pressures completed per orders & reported. New orders obtained. Patient was up to bedside commode & very weak on his feet unsteady & shaky. Walker used & alot of directions given. Ivf per orders. He was set up for breakfast, denies nausea. Will monitor.
--- NOTE | 2020-11-30 12:30 | NUR ---
Patient called out to use bathroom. Patient assisted up to bedside commode. Small BM. pericare provided. Fresh linens & bedbath given. Attempted again to take orthostatic pressure, but could not get a accurate reading. Patient assisted to recliner chair & sat up for lunch. Patient moved to a new room for fall risk reasoning, so he could be closer to the desk. He denies pain, will monitor.
--- NOTE | 2020-11-30 13:41 | NUR ---
SHANON attended clinical rounds. The hospitalist wanted to check the patient's orthostatic vitals. His orthostatic vitals came back positive, so the patient will not be ready to d/c today. The patient was made inpatient. SHANON notified and faxed updates to Precious at [facility]. Precious reports that they are unable to take over the weekend and would be able to accept the patient on Thursday. SHANON contacted and updated the patient's son, Prashant. Prashant is in agreement to the plan. Prashant's phone number is [phone]. *Discharge plan: [facility]*
--- NOTE | 2020-11-30 14:45 | NUR ---
Patient assisted back into bed with therapy assist. Medications given per orders. Patient at bedside. Will monitor.
--- NOTE | 2020-11-30 18:16 | NUR ---
Patient bed alarm going off. Patient seems to be sundowning. I reoriented as needed. I reviewed plan of care reviewed. Continue to strictly follow high fall risk protocol.
[2020-12-01 04:01] VITALS: BP 126/64; PULSE 82; TEMP 97.6
[2020-12-01 06:25] LABS: HEMATOCRIT 38.3 % (42.0-52.0); HEMOGLOBIN 12.6 g/dl (13.5-18.0); MEAN CELL VOLUME 101 fl (80.0-100.0); MEAN CORPUSCULAR HEMOGLOBIN 33 pg (27.0-31.0); MEAN CORPUSCULAR HGB CONC 33 g/dl (33.0-37.0); MEAN PLATELET VOLUME 9.3 fl (7.4-10.4); PLATELET COUNT 168 K/mm3 (130-400); RED BLOOD COUNT 3.78 M/mm3 (4.20-5.60); REDCELL DISTRIBUTION WIDTH-CV 13.6 % (11.5-14.5)
[2020-12-01 06:38] LABS: CALCIUM 9.1 mg/dL (8.4-10.2); CREATININE, serum 1.18 (0.66-1.25); POTASSIUM 3.9 mmol/L (3.4-5.0)
[2020-12-01 06:46] LABS: MAGNESIUM 2.1 mg/dL (1.6-2.3)
[2020-12-01 08:30] VITALS: BP 132/82; PULSE 79; TEMP 98.4
[2020-12-01 11:53] VITALS: BP 123/69; PULSE 78; TEMP 97.7
[2020-12-01 17:49] VITALS: BP 158/73; PULSE 66; TEMP 97.7
--- NOTE | 2020-12-01 19:00 | NUR ---
Pt had uneventful day, rested in bed. Was alert oriented to self and place occasionally. He denied any pain. Appetite was good. Continued to be incontinent of urine, but continent of bowel. Up with two assist to the cammode, very weak gait. On RA. Family at bedside for part of the day. Fall precautions in place.
[2020-12-01 20:22] VITALS: BP 149/88; PULSE 85; TEMP 97.8
--- NOTE | 2020-12-01 21:33 | NUR ---
Kimber was resting comfortably in bed with family at bedside when I did my assessment. He is awake alert but pleasantly confused. He just had his dinner and very nice and cooperative. He took his night time pills all at the same time without any concerns. Family left and put the bed alarm on and call light within reach.
[2020-12-02 00:02] VITALS: BP 153/74; PULSE 63; TEMP 98.9
[2020-12-02 03:49] VITALS: BP 128/82; PULSE 70; TEMP 98.7
[2020-12-02 06:51] LABS: BASO % 0.7 % (0.0-2.0); EOS # 0.2 (0.0-0.7); EOS % 3.1 % (0-4.0); GRAN # 3.2 (1.4-6.5); GRAN % 54.8 % (42.2-75.2); HEMATOCRIT 38.2 % (42.0-52.0); HEMOGLOBIN 12.6 g/dl (13.5-18.0); LYMPH # 1.8 (1.2-3.4); LYMPH % 31.4 % (20.0-51.0); MEAN CELL VOLUME 102 fl (80.0-100.0); MEAN CORPUSCULAR HEMOGLOBIN 34 pg (27.0-31.0); MEAN CORPUSCULAR HGB CONC 33 g/dl (33.0-37.0); MEAN PLATELET VOLUME 9.4 fl (7.4-10.4); MONO # 0.6 (0.1-0.6); MONO % 9.8 % (1.7-9.3); PLATELET COUNT 188 K/mm3 (130-400); RED BLOOD COUNT 3.75 M/mm3 (4.20-5.60); REDCELL DISTRIBUTION WIDTH-CV 13.8 % (11.5-14.5)
[2020-12-02 07:03] LABS: CALCIUM 9.1 mg/dL (8.4-10.2); CREATININE, serum 1.13 (0.66-1.25); POTASSIUM 3.7 mmol/L (3.4-5.0)
--- NOTE | 2020-12-02 07:15 | NUR ---
Patient resting in bed upon entering the room. C/O being cold, covered him with warm blanket. NS running as orderd. Patient denies any pain, discomfort, SOA, or further needs at this time. Will continue to monitor. Call light in reach. Fall precautions in place.
[2020-12-02 07:40] VITALS: BP 136/99; PULSE 77; TEMP 97.5
[2020-12-02 12:00] VITALS: BP 129/81; PULSE 69; TEMP 97.7
--- NOTE | 2020-12-02 15:12 | NUR ---
SHANON was notified by the nurse that the family has decided to changed the plan of care from [facility] to [facility]. SHANON educated nurse that I would need to speak to the DPOA. The DPOA is Daria, the patients' . SHANON called , no answer. Per the previous notation it would able that the patient is also accepted to [facility] with a per day pay rate. However, the change must be discussed with the DPOA for health care. SHANON called [facility] to confirm soto and statues. Awaiting calls.
[2020-12-02 16:40] VITALS: BP 130/82; PULSE 68; TEMP 98.8
--- NOTE | 2020-12-02 18:00 | NUR ---
Patient has had an unevenful day. Medication orders changed per Verbal Order from Hi[facility]. Patient to be place at a SNF within the next couple of days. Patient has denies any pain, discomfort, or SOA. Denies any further needs at this time. Fluids running as orderd. Call light in reach. Fall precautions in place. Report given to BAILEY Crespo.
--- NOTE | 2020-12-02 21:00 | NUR ---
Initial shift assessment done- awake- confused- pleasant,VSS, taking meds without problems with water, IV fluids of NS at 50cc/hr. Incontinent of urine- personal care given - repositioned.
[2020-12-02 21:30] VITALS: BP 144/81; PULSE 62; TEMP 98.2
[2020-12-03 01:49] VITALS: BP 137/82; PULSE 63; TEMP 98.2
[2020-12-03 05:00] VITALS: BP 142/86; PULSE 73; TEMP 98
--- NOTE | 2020-12-03 06:11 | NUR ---
Slept well last night- Quiet, awake now , very pleasant, remains confused-very cooperative--states he feels good this morning, VSS
[2020-12-03 07:38] VITALS: BP 149/89; PULSE 73; TEMP 97.6
[2020-12-03] MEDS ORDERED: SEROQUEL 2525 MG/TAB PO (08:16)
[2020-12-03] MEDS ORDERED: SYMMETREL100 MG PO ×2 (08:16→11:28)
[2020-12-03] MEDS ORDERED: PROAMATINE2.5 MG PO (08:17)
[2020-12-03] MEDS ORDERED: SINEMET 25/101 UDTAB PO (08:18)
--- NOTE | 2020-12-03 08:30 | NUR ---
Shift assessment complete. Sitting in bed finishing breakfast. Alert, oriented to self only. Reports occasional sharp pain to left wrist but is unable to rate pain at this time and declines pain medications. Heart RRR. Lungs CTA. Continuing to monitor.
[2020-12-03 11:21] VITALS: BP 123/88; PULSE 73; TEMP 97.7
[2020-12-03] MEDS ORDERED: REQUIP 0.5MG0.5 MG PO (11:28)
[2020-12-03 16:05] VITALS: BP 143/93; PULSE 63; TEMP 97.5
--- NOTE | 2020-12-03 16:58 | NUR ---
[employer] faxed clinical updates to [facility] and [facility]. Mhoini at [facility] advised they cannot accept referral. SW contacted Precious at [facility] who advised they will be able to accept patient upon discharge. SW followed up with patient's son, Prashant and , Daria. Both are in agreement with discharge to [facility]. Discharge Plan: [facility] tomorrow.
[2020-12-03 20:07] VITALS: BP 153/70; PULSE 75; TEMP 97.9
--- NOTE | 2020-12-03 20:30 | NUR ---
PATIENT WAS SITTING ON THE CHAIR.HE IS IMPULSIVE UNAWARE OF HIS SAFETY.NO OTHER NEED S AT THIS TIME.
[2020-12-03 22:26] LABS: FOLATE (FOLIC ACID) 4.2 ng/mL (2.0-20.0)
[2020-12-04 05:25] VITALS: BP 163/88; PULSE 98; TEMP 97.2
--- NOTE | 2020-12-04 06:22 | NUR ---
PATIENT HAD A CALM NIGHT.SLEPT MOST OF THE NIGHT.NO OTHER NEEDS .
[2020-12-04 07:11] LABS: BASO # 0.1 (0.0-0.2); BASO % 0.7 % (0.0-2.0); EOS # 0.1 (0.0-0.7); EOS % 1.6 % (0-4.0); GRAN # 5.3 (1.4-6.5); GRAN % 70.1 % (42.2-75.2); HEMATOCRIT 37.2 % (42.0-52.0); HEMOGLOBIN 12.4 g/dl (13.5-18.0); LYMPH # 1.5 (1.2-3.4); LYMPH % 19.8 % (20.0-51.0); MEAN CELL VOLUME 100 fl (80.0-100.0); MEAN CORPUSCULAR HEMOGLOBIN 33 pg (27.0-31.0); MEAN CORPUSCULAR HGB CONC 33 g/dl (33.0-37.0); MEAN PLATELET VOLUME 8.9 fl (7.4-10.4); MONO # 0.6 (0.1-0.6); MONO % 7.5 % (1.7-9.3); PLATELET COUNT 187 K/mm3 (130-400); RED BLOOD COUNT 3.72 M/mm3 (4.20-5.60); REDCELL DISTRIBUTION WIDTH-CV 13.5 % (11.5-14.5)
[2020-12-04 07:20] LABS: CALCIUM 9.3 mg/dL (8.4-10.2); CREATININE, serum 1.25 (0.66-1.25); POTASSIUM 3.7 mmol/L (3.4-5.0)
--- NOTE | 2020-12-04 08:02 | NUR ---
Pt assessment complete. Pt is laying in bed upon entry, he is alert and oriented to person only. Occasionally jerky movements present. Pt denies any pain. No SOB. Incontinent of urine, pericare provided. POC discussed with patient. Set up for breakfast, fall precations in place.
[2020-12-04] MEDS ORDERED: ZOLOFT 25MG25 MG PO (08:14)
[2020-12-04] MEDS ORDERED: REMERON30 MG PO (08:14)
[2020-12-04] MEDS ORDERED: REMERON 15M15 MG/TA1 PO (08:16)
[2020-12-04 08:22] VITALS: BP 121/82; PULSE 80; TEMP 98.2
[2020-12-04] MEDS ORDERED: NUPLAZID34 MG PO (09:02)
--- NOTE | 2020-12-04 11:06 | NUR ---
[facility] Pt dressed and wheeled out to [facility] staff at this time.
--- NOTE | 2020-12-04 11:11 | NUR ---
Report given to Rachele.
--- NOTE | 2020-12-04 11:26 | NUR ---
Wharf Tender Helper attended clinical rounds with the team and patient to discharge to [facility] today. SHANON contacted Precious at [facility] and set transport time for 1100. SHANON contacted patient's , Daria and left a message with the discharge time. SHANON also contacted patient's son, Prashant to notify him of discharge time. Prashant advised he is in agreement and will keep trying to get in touch with Daria to make sure she is aware of transport time. SHANON followed up with Precious about COVID testing. Precious advised patient will not need to be tested if he is vaccinated. SHANON contacted Dr. Carmona's office and confirmed patient has had both of his shots. SHANON notified Precious then faxed discharge orders. No additional needs at this time. Patient discharged to [facility] skilled.
== END 2020-12-04 11:13 | DRG 57 ==
LOC: COL.ER 10:14 → MEDICAL 13:14
PROVIDERS: Emergency Medicine; Internal Medicine; Nurse Practitioner Family; Physician Assistant; ADMIT Hospitalist
DX: G20 Parkinson's disease (principal); N39.0 Urinary tract infection, site not specified; R44.1 Visual hallucinations; F02.80 Dementia in other diseases classified elsewhere, unspecified severity, without behavioral disturbance, psychotic disturbance, mood disturbance, and anxiety; I25.10 Atherosclerotic heart disease of native coronary artery without angina pectoris; N40.0 Benign prostatic hyperplasia without lower urinary tract symptoms; M10.9 Gout, unspecified; N18.30 Chronic kidney disease, stage 3 unspecified; E78.5 Hyperlipidemia, unspecified; E11.22 Type 2 diabetes mellitus with diabetic chronic kidney disease; D64.9 Anemia, unspecified; R07.89 Other chest pain; E11.65 Type 2 diabetes mellitus with hyperglycemia; E87.5 Hyperkalemia; F01.50 Vascular dementia, unspecified severity, without behavioral disturbance, psychotic disturbance, mood disturbance, and anxiety; Z66 Do not resuscitate; I95.1 Orthostatic hypotension; I12.9 Hypertensive chronic kidney disease with stage 1 through stage 4 chronic kidney disease, or unspecified chronic kidney disease; R91.1 Solitary pulmonary nodule; Z79.82 Long term (current) use of aspirin
CPT/HCPCS: 99231-AI; 99232-AI; G0378; J1644; J2405; J7030; J7040

== ENCOUNTER → 2021-01-24 | Outpatient (REF) ==
[~2021-01-24] MED LIST changes: +ARICEPT10 MG PO; +LASIX 20MG TABL20 MG PO; +LEXAPRO 5MG5 MG PO; +LIPITOR 40MG TA40 MG PO; +NUPLAZID34 MG PO; +PROAMATINE2.5 MG PO; +REMERON 15M15 MG/TA1 PO; +REMERON30 MG PO; +REQUIP 0.5MG0.5 MG PO; +SYMMETREL100 MG PO; +ZOLOFT 25MG25 MG PO
== END ==
LOC: ZLAB.WCH 09:17
DX: Z01.89 Encounter for other specified special examinations (principal)